=== PATIENT | female | born 1950 | race Caucasian/White ===

== ENCOUNTER 2019-09-03 21:25 | Observation (INO) | payer BC ==
--- OUTSIDE RECORDS SUMMARY | 2019-09-03 21:28 | XMS REPORT ---
:1950 Author Organization eClinicalWorks Care Team Providers Name Role Phone Flex Wells Provider Role Unavailable Allergies, Adverse Reactions, Alerts Substance Reaction Event Type Clindamycin HCl Info Not Available Drug Allergy Problems Problem Type Condition Code Onset Dates Condition Statu s Assessment Essential (primary) hypertension I10 Active Assessment Type 2 diabetes mellitus without E11.9 Active complication, without long-term current use of insulin Assessment Oral ulceration K12.1 Active Assessment Depression with anxiety F41.8 Acti ve Assessment Hyperlipidemia, unspecified E78.5 Active hyperlipidemia type Problem Lumbago with sciatica, left side M54.42 Active Problem Depression with anxiety F41.8 Acti ve Problem Essential (primary) hypertension I10 Active Problem Hyperlipidemia, unspecified E78.5 Active hyperlipidemia type Problem Type 2 diabetes mellitus without E11.9 Active complication, without long-term current use of insulin Problem Other chronic pain G89.29 Active Problem Gastroesophageal reflux disease K21.9 Active without esophagitis Medications Medication Code Code Instructions Start End Date Status Dosage System Date Metformin HCl [facility] 60777292947 1000 Active TAKE 1 TABLET BY MOUTH TWICE A DAY Pravastatin [facility] 26418328121 10 MG Active 1 EACH O NCE Sodium A DAY (AT BEDTIME) Cymbalta [facility] 21345104068 20 MG Active 1 CAPSULE ORALLY ONCE DAILY Amlodipine [facility] 67463437036 5 Active TAKE 1 Besylate TABLET BY MOUTH ONCE DAILY. Farxiga [facility] [id number] 5 Active 1 TAB(S) ORALLY ONCE A DAY FOR 30 DAYS Results No Known Results Summary Purpose eClinicalWorks Submission
[2019-09-03] MEDS ORDERED: INSULIN -REGULAR HUMAN 50 UNIT/0.5 ML ML ONE (22:54)
[2019-09-03] MEDS ORDERED: HYDRALAZINE HCL 20 MG/ML VIAL ONE (22:55)
[2019-09-03 22:58] LABS: Basophils % 0.8 % (0-1.3); Hematocrit 41.9 % (36.0-45.0); Lymphocytes % 18.2 % (15.3-44.8); MPV 8.6 fL (7.6-11.3); RBC Red Blood Cell Count 4.95 M/uL (3.86-4.86)
[2019-09-03 23:14] LABS: Potassium 3.6 mmol/L (3.5-5.1)
[2019-09-03 23:16] LABS: Protime INR 1.06
--- NOTE | 2019-09-03 23:41 | ER ---
Nurse's Notes [facility] Name: Shaila Washington Age: 68 yrs Sex: Female : 1950 Arrival Date: 09/03/2019 Time: 21:26 Bed 16 Private MD: Diagnosis: Weakness;CVA- Old;Hyperglycemia, unspecified Presentation: 09/02 21:36 Chief complaint: Patient states: Aphasia and right sided weakness has gotten worse ll1 today. States she has been having stroke like symptoms for past 2-3 weeks. Coronavirus screen: Proceed with normal triage. Patient denies a cough. Patient denies shortness of breath or difficulty breathing. Patient denies measured and/or subjective temperature greater than 100.4F prior to today's visit. Patient denies travel on a cruise ship or to a country the [facility] currently lists as an affected area. Patient denies contact with known and/or suspected case of COVID-19. Ebola Screen: Patient denies travel to an Ebola-affected area in the 21 days before illness onset. Initial Sepsis Screen: Does the patient meet any 2 criteria? HR > 90 bpm. Does the patient have a suspected source of infection? No. Patient's initial sepsis screen is negative. Risk Assessment: Do you want to hurt yourself or someone else? Patient reports no desire to harm self or others. Onset of symptoms was August 11, 2019. 21:36 Method Of Arrival: Wheelchair ll1 21:36 Acuity: BRIT 3 ll1 Triage Assessment: 21:45 General: Appears in no apparent distress. Behavior is calm, cooperative, appropriate vc for age. Pain: Denies pain. 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 Patient/guardian denies using alcohol, street drugs, tobacco products. Screenin:49 Abuse screen: Denies threats or abuse. Nutritional screening: No deficits noted. vc Tuberculosis screening: No symptoms or risk factors identified. Fall Risk None identified. Assessment: 22:00 General: Appears in no apparent distress. comfortable, Behavior is calm, cooperative, vc appropriate for age. Pain: Denies pain. 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 Cardiovascular: Capillary refill < 3 seconds Patient's skin is warm and dry. Respiratory: Airway is patent Respiratory effort is even, unlabored, Respiratory pattern is regular, symmetrical. GI: No signs and/or symptoms were reported involving the gastrointestinal system. : No signs and/or symptoms were reported regarding the genitourinary system. EENT: No deficits noted. Derm: Skin is intact, is healthy with good turgor. Musculoskeletal: Circulation, motion, and sensation intact. Range of motion: intact in all extremities. 23:00 Reassessment: Patient appears in no apparent distress at this time. Patient and/or vc family updated on plan of care and expected duration. Pain level reassessed. Patient is alert, oriented x 3, equal unlabored respirations, skin warm/dry/pink. Patient denies pain at this time. 09/03 00:00 Reassessment: Patient appears in no apparent distress at this time. Patient and/or vc family updated on plan of care and expected duration. Pain level reassessed. Patient is alert, oriented x 3, equal unlabored respirations, skin warm/dry/pink. Patient denies pain at this time. 01:00 Reassessment: Patient appears in no apparent distress at this time. Patient and/or vc family updated on plan of care and expected duration. Pain level reassessed. Patient is alert, oriented x 3, equal unlabored respirations, skin warm/dry/pink. Patient resting with eyes closed, no wants or needs at this time. Patient denies pain at this time. 01:22 Reassessment: Oracio Washington () [phone]. ea 01:49 Reassessment: Patient appears in no apparent distress at this time. Reassessment: vc Patient laying with eyes closed, chest rising and falling evenly. [facility]. Vital Signs: 09/02 21:36 BP 182 / 87; Pulse 109; Resp 18; Temp 98.6; Pulse Ox 96% ; Pain 0/10; ll1 23:30 BP 147 / 75; Pulse 89; Resp 20; Pulse Ox 95% on R/A; vc ED Course: 21:26 Patient arrived in ED. cl3 21:39 Triage completed. ll1 21:41 Arm band placed on Patient placed in an exam room, on a stretcher. ll1 21:51 Fredis Maxwell MD is Attending Physician. kdr 22:19 Stroke CXR 1 View In Process Unspecified. EDMS 22:19 Yessenia Sullivan, RN is Primary Nurse. vc 22:36 CT Stroke Brain w/o Contrast In Process Unspecified. EDMS 23:09 Bed in low position. Call light in reach. Side rails up X 1. Side rails up X2. Verbal jp3 reassurance given. csr on. Pulse ox on. NIBP on. 23:09 EKG done, by ED staff, reviewed by Fredis Maxwell MD. jp3 23:40 Guanako Thayer is Hospitalizing Provider. kdr 09/03 01:50 No provider procedures requiring assistance completed. Patient admitted, IV remains in vc place. 06:35 Primary Nurse role handed off by Yessenia Sullivan RN 07:20 Lupillo Beauchamp, RN is Primary Nurse. em Administered Medications: 09/02 22:30 Drug: Insulin Regular Human 8 units {Co-Signature: vc (Yessenia Sullivan RN).} Route: ll1 IVP; Site: right forearm; 09/03 01:42 Follow up: Response: No adverse reaction vc 01:43 Not Given (Hemodynamic Parameters): Lopressor 5 mg IVP once; Hold for SBP <100 or HR vc <60. Outcome: 09/02 23:41 Decision to Hospitalize by Provider. kdr 09/03 01:50 Admitted to ER Hold. [facility] for further documentation. vc Condition: good Instructed on the need for admit. 09:23 Patient left the ED. eb Signatures: Dispatcher [employer] EDMN Fredis Maxwell MD MD kdr Lupillo Beauchamp, BABAK RN em Eliana Frank, Lyndsay Wyatt RN, ea, Jacob jp3 Margaret Pina cl3 Yessenia Sullivan RN RN vc Rhonda Pina RN RN ll1 Yessenia Sullivan RN, vc
--- NOTE | 2019-09-03 23:41 | EDPHYS ---
Physician Documentation [facility] Name: Shaila Washington Age: 68 yrs Sex: Female : 1950 Arrival Date: 09/03/2019 Time: 21:26 Bed 16 Private MD: ED Physician Fredis Maxwell HPI: 09/02 23:41 This 68 yrs old Female presents to ER via Wheelchair with complaints of Arm kdr Numbness/weakness. 23:41 The patient states that on 08/16, she developed right sided weakness, upper and lower. kdr She was too concerned about COVID so she did not come to the ED. Today when her came home at 7:00 PM he noted that she was globally weak and unable to care for herself or feed herself. She is not able to give a definitive time when she developed these symptoms. She has no focal c/o at this time. Onset: The symptoms/episode began/occurred at an unknown time. Severity of symptoms: At their worst the symptoms were mild in the emergency department the symptoms are unchanged. This has been ongoing since August 16. The patient has not recently seen a physician. 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 Patient/guardian denies using alcohol, street drugs, tobacco products. ROS: 23:41 Constitutional: Negative for fever, chills, and weight loss, Eyes: Negative for injury, kdr pain, redness, and discharge, ENT: Negative for injury, pain, and discharge, Neck: Negative for injury, pain, and swelling, Cardiovascular: Negative for chest pain, palpitations, and edema, Respiratory: Negative for shortness of breath, cough, wheezing, and pleuritic chest pain, Abdomen/GI: Negative for abdominal pain, nausea, vomiting, diarrhea, and constipation, Back: Negative for injury and pain, : Negative for injury, bleeding, discharge, and swelling, MS/Extremity: Negative for injury and deformity, Skin: Negative for injury, rash, and discoloration, Psych: Negative for depression, anxiety, suicide ideation, homicidal ideation, and hallucinations, Allergy/Immunology: Negative for hives, rash, and allergies, Endocrine: Negative for neck swelling, polydipsia, polyuria, polyphagia, and marked weight changes, Hematologic/Lymphatic: Negative for swollen nodes, abnormal bleeding, and unusual bruising. 23:41 Neuro: Positive for weakness, of the right arm and right leg. Exam: 23:41 Constitutional: This is a well developed, well nourished patient who is awake, alert, kdr and in no acute distress. Head/Face: Normocephalic, atraumatic. Eyes: Pupils equal round and reactive to light, extra-ocular motions intact. Lids and lashes normal. Conjunctiva and sclera are non-icteric and not injected. Cornea within normal limits. Periorbital areas with no swelling, redness, or edema. Neck: Trachea midline, no thyromegaly or masses palpated, and no cervical lymphadenopathy. Supple, full range of motion without nuchal rigidity, or vertebral point tenderness. No Meningismus. Chest/axilla: Normal chest wall appearance and motion. Nontender with no deformity. No lesions are appreciated. Cardiovascular: Regular rate and rhythm with a normal S1 and S2. No gallops, murmurs, or rubs. Normal PMI, no JVD. No pulse deficits. Respiratory: Lungs have equal breath sounds bilaterally, clear to auscultation and percussion. No rales, rhonchi or wheezes noted. No increased work of breathing, no retractions or nasal flaring. Abdomen/GI: Soft, non-tender, with normal bowel sounds. No distension or tympany. No guarding or rebound. No evidence of tenderness throughout. Back: No spinal tenderness. No costovertebral tenderness. Full range of motion. Skin: Warm, dry with normal turgor. Normal color with no rashes, no lesions, and no evidence of cellulitis. MS/ Extremity: Pulses equal, no cyanosis. Neurovascular intact. Full, normal range of motion. Psych: Awake, alert, with orientation to person, place and time. Behavior, mood, and affect are within normal limits. 23:41 Neuro: Motor: moves all fours, strength is 5/5 in the left arm and left leg, strength is 4/5 in the right arm and right leg. Vital Signs: 21:36 BP 182 / 87; Pulse 109; Resp 18; Temp 98.6; Pulse Ox 96% ; Pain 0/10; ll1 23:30 BP 147 / 75; Pulse 89; Resp 20; Pulse Ox 95% on R/A; vc MDM: 23:41 Patient medically screened. kdr 23:41 Data reviewed: vital signs, nurses notes, lab test result(s), EKG, radiologic studies. kdr Counseling: I had a detailed discussion with the patient and/or guardian regarding: the historical points, exam findings, and any diagnostic results supporting the discharge/admit diagnosis, lab results, radiology results, the need for further work-up and treatment in the hospital. 09/02 22:07 Order name: Basic Metabolic Panel; Complete Time: 23:35 [facility] 09/02 22:07 Order name: CBC with Diff; Complete Time: 23:35 [facility] 09/02 22:07 Order name: Protime (+inr); Complete Time: 23:35 [facility] 09/02 22:07 Order name: CT Stroke Brain w/o Contrast [facility] 09/02 22:55 Order name: Glucose, Ancillary Testing; Complete Time: 23:35 [facility] 09/03 08:32 Order name: Glucose, Ancillary Testing [facility] 09/02 22:07 Order name: Stroke CXR 1 View [facility] 09/02 22:07 Order name: EKG; Complete Time: 22:08 [facility] 09/02 22:07 Order name: Accucheck; Complete Time: 22:50 [facility] 09/03 08:44 Order name: MRI [facility] 09/03 08:51 Order name: MRI [facility] 09/03 08:57 Order name: MRI [facility] 09/02 22:07 Order name: Cardiac monitoring; Complete Time: 23:10 [facility] 09/02 22:07 Order name: EKG - Nurse/Tech; Complete Time: 23:10 [facility] 09/02 22:07 Order name: IV Saline Lock; Complete Time: 22:50 [facility] 09/02 22:07 Order name: Labs collected and sent; Complete Time: 22:50 [facility] 09/02 22:07 Order name: NPO; Complete Time: 23:10 [facility] 09/02 22:07 Order name: O2 Per Protocol; Complete Time: 23:10 [facility] 09/02 22:07 Order name: O2 Sat Monitoring; Complete Time: 23:10 [facility] 09/02 22:07 Order name: Stroke Swallow Screen; Complete Time: 01:42 kdr Administered Medications: 22:30 Drug: Insulin Regular Human 8 units {Co-Signature: vc (Yessenia Sullivan RN).} Route: ll1 IVP; Site: right forearm; 09/03 01:42 Follow up: Response: No adverse reaction vc 01:43 Not Given (Hemodynamic Parameters): Lopressor 5 mg IVP once; Hold for SBP <100 or HR vc <60. Disposition: 09/03/19 23:41 Hospitalization ordered by Guanako Thayer for Inpatient Admission. Preliminary diagnosis are Weakness, CVA- Old, Hyperglycemia, unspecified. - Bed requested for Telemetry/MedSurg (Inpatient). - Status is Inpatient Admission. eb - Condition is Fair. - Problem is an ongoing problem. - Symptoms are unchanged. Signatures: Dispatcher [employer] EDMS Fredis Maxwell MD MD kdr Garcia, Cindy, RN RN cg Botello, Elizabeth eb Calcote, Vanessa, RN RN vc Lewis, Lynsay, RN RN [facility] Yessenia Sullivan RN, vc Corrections: (The following items were deleted from the chart) 01:09/02 23:41 Hospitalization Ordered by Guanako Thayer for Inpatient Admission. cg Preliminary diagnosis is Weakness; CVA- Old; Hyperglycemia, unspecified. Bed requested for Telemetry/MedSurg (Inpatient). Status is Inpatient Admission. Condition is Fair. Problem is an ongoing problem. Symptoms are unchanged. kdr 09/03 01:22 01:22 09/03/2019 23:41 Hospitalization Ordered by Guanako Thayer for Inpatient cg Admission. Preliminary diagnosis is Weakness; CVA- Old; Hyperglycemia, unspecified. Bed requested for [facility] ER HOLD. Status is Inpatient Admission. Condition is Fair. Problem is an ongoing problem. Symptoms are unchanged. cg 08:03 01:22 09/03/2019 23:41 Hospitalization Ordered by Guanako Thayer for Inpatient eb Admission. Preliminary diagnosis is Weakness; CVA- Old; Hyperglycemia, unspecified. Bed requested for [facility] ER HOLD. Status is Inpatient Admission. Condition is Fair. Problem is an ongoing problem. Symptoms are unchanged. cg 09:23 08:03 09/03/2019 23:41 Hospitalization Ordered by Guanako Thayer for Inpatient eb Admission. Preliminary diagnosis is Weakness; CVA- Old; Hyperglycemia, unspecified. Bed requested for Telemetry/MedSurg (Inpatient). Status is Inpatient Admission. Condition is Fair. Problem is an ongoing problem. Symptoms are unchanged. eb
--- NOTE | 2019-09-04 00:36 | P.HP ---
Certification for Inpatient Patient admitted to: Observation With expected LOS: <2 Midnights Practitioner: I am a practitioner with admitting privileges, knowledge of patient current condition, hospital course, and medical plan of care. Services: Services provided to patient in accordance with Admission requirements found in Title 42 Section 412.3 of the Code of Federal Regulations Patient History Date of Service: 09/04/19 Reason for admission: Right-sided weakness History of Present Illness: 68-year-old woman with a history diabetes mellitus presented emergency department with a complaint of right-sided weakness of onset about 2 weeks ago. Patient stated she did not come to the ED for evaluation because of the Covid pandemic. She stated her weakness got better but today her son found her lethargic and therefore brought her to the ED for evaluation. She still has significant weakness in her right arm and leg. CT head shows old CVA, no acute changes. EKG read sinus rhythm. Noted her blood sugar was elevated to the 400s. She has not followed with a physician for over a year and has been noncompliant with her medications. Patient is admitted for further stroke workup. Allergies No Known Allergies Allergy (Verified 03/13/12 22:09) Home Medications: Alprazolam [Xanax] 1 mg PO TID PRN 03/13/12 Gabapentin [Neurontin] 600 mg PO TID 03/13/12 Hydrocodone Bit/Acetaminophen [Smithers 10-325 Tablet] 1 each PO Q6HR 03/13/12 Lansoprazole [Prevacid] 30 mg PO BID 03/13/12 Lisinopril 40 mg PO DAILY 03/13/12 Metformin HCl [Glucophage*] 1,000 mg PO BID 03/13/12 Zolpidem Tartrate [Ambien] 10 mg PO BEDTIME PRN 03/13/12 Hcod/Chlorphen [Tussionex] 1 tsp PO Q8H PRN #6 oz 03/14/12 Levofloxacin [Levaquin] 500 mg PO DAILY #7 tablet 03/14/12 Prednisone 20 mg PO UD #15 tablet 03/14/12 - Past Medical/Surgical History Diabetic: Yes - Family History Father -: Heart disease Mother -: Diabetes - Social History Smoking Status: Never smoker Alcohol use: No CD- Drugs: No Caffeine use: Yes Review of Systems Other: Patient denied any trouble swallowing or visual disturbance or headache. Except as documented, all other systems reviewed and negative. Physical Examination - Physical Exam General: Alert, In no apparent distress, Oriented x3 HEENT: PERRLA, Mucous membr. moist/pink, EOMI Neck: Supple, JVD not distended Respiratory: Clear to auscultation bilaterally, Normal air movement Cardiovascular: No edema, Regular rate/rhythm, Normal S1 S2, No murmurs Capillary refill: <2 Seconds Gastrointestinal: Normal bowel sounds, Soft and benign, Non-distended, No tenderness Musculoskeletal: No swelling, No erythema Integumentary: No rashes Neurological: Normal speech, Sensation intact, Cranial nerves 3-12 intact, Other (Right-sided weakness. Motor 4/5 in right upper extremity and right lower extremity) - Studies Laboratory Data (last 24 hrs) 09/03/19 22:41: PT 12.5, INR 1.06 09/03/19 22:41: WBC 16.7 H, Hgb 13.9, Hct 41.9, Plt Count 402 09/03/19 22:41: Sodium 134 L, Potassium 3.6, BUN 13, Creatinine 1.26, Glucose 464 H* Assessment and Plan - Problems (Diagnosis) (1) Acute CVA (cerebrovascular accident) Current Visit: Yes Status: Acute (2) Diabetes mellitus type 2 in nonobese Current Visit: Yes Status: Acute (3) Hyperlipidemia Current Visit: Yes Status: Acute (4) Hepatitis C infection Current Visit: Yes Status: Acute - Plan Place patient under observation. Stroke workup with echocardiogram, MRI of the brain, carotid Doppler. Start full-dose aspirin and lipitor Check lipid profile. PT and OT evaluations Neurology consult Blood sugar control with insulin sliding scale. Hold metformin for now. - Advance Directives Does patient have a Living Will: No Does patient have a Durable POA for Healthcare: No
[2019-09-04] MEDS ORDERED: ONDANSETRON 4 MG/2 ML VIAL IV PRN (01:55)
[2019-09-04] MEDS ORDERED: ACETAMINOPHEN 500 MG TAB PO PRN (01:55)
--- NOTE | 2019-09-04 07:21 | RAD REPORT ---
EXAM DESCRIPTION: RAD - Chest Single View - 09/03/2019 10:18 pm CLINICAL HISTORY: weakness COMPARISON: March 2012 TECHNIQUE: AP portable chest image was obtained 09/03/2019 10:18 pm . FINDINGS: Lung volumes are low. No peripheral mass or consolidation. Failure and volume overload are not suspected. Interstitial pattern is accentuated by shallow inspiration, not clearly different from comparison. Sm all granuloma in the lower left lung field. Heart and vasculature are normal. No measurable pleural e ffusion and no pneumothorax. No acute bony abnormality seen. No acute aortic findings suspected. IMPRESSION: Shallow inspiration exam without acute cardiopulmonary finding. Very minimal interstitial edema or infiltrate could be masked. Follow-up can be obtained if the patie nt remains symptomatic.
[2019-09-04] MEDS: INSULIN -REGULAR HUMAN 50 UNIT/0.5 ML ML SQ SCH ×5 (07:30→21:17)
--- NOTE | 2019-09-04 08:43 | RAD REPORT ---
EXAM DESCRIPTION: MRI - MRA Head Wo Cont - 09/04/2019 8:07 am CLINICAL HISTORY: CVA, right-sided weakness COMPARISON: None. TECHNIQUE: Axial and coronal 3D [id number] image acquisition was performed. 3D rotational images were generated with source and reconstruction images reviewed. Horizontal and vertical axis rotation al views generated using MIP protocol. FINDINGS: No basilar artery stenosis. Bilateral posterior communicating arteries are present. There is significant focal stenosis in the left posterior communicating artery. Short-segment significant s tenosis present in the P2 segment of the right posterior cerebral artery. There is truncation of the distal left posterior cerebral artery P2 segment and the subsequent P3 segments. Distal internal carotid arteries show atherosclerotic change with stenoses of less than 50%. CT imagi ng showed significant internal carotid artery atherosclerotic calcifications. The right anterior cerebral and middle cerebral arteries show mild atherosclerotic changes with no si gnificant luminal narrowing. Mild atherosclerotic narrowing of the right anterior cerebral artery A1 segment. Significant high-gra de stenoses present involving the M1-M2 junction of the left middle cerebral artery. Significant high -grade stenoses extend into the origin of the M2 branches. Overall diminished vascularity in the left middle cerebral artery branches relative to the right with truncated branches. IMPRESSION: Bilateral internal carotid artery atherosclerotic changes are present with luminal narro wing. This does not appear to exceed the 50% threshold. No basilar artery stenoses. Significant atherosclerotic change with high-grade stenosis and branch occlusion involving the left m iddle cerebral artery and left posterior cerebral artery distributions.
--- NOTE | 2019-09-04 08:49 | RAD REPORT ---
EXAM DESCRIPTION: MRI - MRA Neck W/Wo Cont - 09/04/2019 8:07 am CLINICAL HISTORY: Right-sided CVA COMPARISON: CT head same date, MRI same date, MRA head same date TECHNIQUE: MR angiography of the cervical vasculature performed. Coronal imaging plane acquisition u tilized. A 13 MultiHance contrast volume was utilized. Coronal reformatted images were generated and reviewed. Vertical axis 3D rotational projections obtained using maximum intensity projection protoco l. FINDINGS: Aortic arch is bovine configuration. No great vessel origin stenosis. Stenosis at the origin of the left vertebral artery is identified estimated at 60- 70%. This can be c orrelated with velocity values at sonography. Left vertebral artery is dominant. The nondominant righ t vertebral artery shows no origin stenosis. Approximately 50% luminal narrowing is seen in the dista l left vertebral artery between the posterior inferior cerebellar artery and the base of the basilar artery. Narrowing is less significant in the distal right vertebral artery through this same distal p ortion. Bilateral common carotid artery age show no significant disease. The right bulb ICA junction shows pr oximally 70% stenosis over a 1 centimeter segment. More distally the right internal carotid artery sh ows no additional stenosis or dissection. No left internal carotid artery stenosis or dissection seen. Origin of the left external carotid mona ry is not seen. IMPRESSION: Estimated 70% stenosis of the proximal portion right internal carotid artery. Estimated 60- 70% stenosis of the origin of the left vertebral artery. Approximately 50% stenosis of each vertebral artery between the posterior inferior cerebellar artery origin and the base of the basilar artery. Given the symmetry, this may be normal anatomic variation.
--- NOTE | 2019-09-04 08:55 | RAD REPORT ---
EXAM DESCRIPTION: MRI - Brain W/Wo Cont - 09/04/2019 8:07 am CLINICAL HISTORY: RT SIDED WEAKNESS, right-sided CVA COMPARISON: MRA Head Wo Cont dated 09/04/2019 TECHNIQUE: Sagittal and axial T1-weighted images were obtained. Axial PD/heavily T2-weighted and T2- FLAIR images were obtained along with axial DWI/ADC mapping sequences. Coronal heavily T2 weighted s equence obtained. Axial and coronal post-contrast T1-weighted images were also obtained. A 13 ml Mul tihance contrast following utilized. FINDINGS: No intracranial hemorrhage is present. No mass, edema or shift of midline structures. Diff usion-weighted imaging shows abnormal signal throughout much of the left frontal lobe white matter. S ignal extends from the subcortical white matter of the lateral left frontal lobe to the periventricul ar white matter. Signal extends posteriorly to the central and precentral sulci. Minimal abnormal dif fusion signal is present near the left parietooccipital junction. Corresponding diminished signal pre sent on ADC mapping. No cortical infarction changes confirmed. No other area of acute infarction. Patient has moderate underlying atrophy and chronic ischemic gould e. There is no edema or shift of midline structures. No extra-axial fluid collections. Peres-matter/wh ite matter junction is preserved. Minimal amounts of enhancement are seen in the region of acute infarction. No other area of abnormal enhancement. No dural thickening, dural enhancement or dural signal abnormality. Mastoid air cells and paranasal sinuses are clear. No globe or orbital content abnormality. IMPRESSION: Acute nonhemorrhagic white matter infarction changes are present involving much of the l eft frontal lobe including the central an precentral sulci. Minimal acute nonhemorrhagic infarction changes are present in the white matter of the left parietooc cipital junction. No intracranial hemorrhage. No mass effect or edema. The white matter pattern would support a watershed type infarction involving multiple compromised ves sels as detailed on the MRA head examination.
--- NOTE | 2019-09-04 09:44 | EKG ---
Test Date: 2019-09-03 Test Time: 23:07:17 Net Lead Developer: [place] MEASUREMENT RESULTS: Intervals: Rate: 82 AK: 168 QRSD: 82 QT: 386 QTc: 450 Lebo: P: 64 AK: 168 QRS: 58 T: 28 INTERPRETIVE STATEMENTS: Sinus rhythm with premature atrial complexes Nonspecific T wave abnormality Abnormal ECG Electronically Signed On 09-04-19 09:43:51 CDT by Neri Payan
[2019-09-04] MEDS: NA CHLORIDE 0.9% 1,000 ML IV SCH ×2 (10:12→15:15)
[2019-09-04] MEDS: ENOXAPARIN 40 MG/0.4 ML SQ SCH (10:12)
[2019-09-04] MEDS: ASPIRIN EC 81 MG TAB PO SCH (10:12)
--- NOTE | 2019-09-04 10:17 | RAD REPORT ---
EXAM DESCRIPTION: CT - Ct Stroke Brain Wo Cont - 09/04/2019 5:44 am CLINICAL HISTORY: 68 years Female right sided weakness for three weeks COMPARISON: None. TECHNIQUE: Contiguous axial CT images obtained through the brain without IV contrast. This exam was performed according to our department optimization program which includes automated exp osure control, adjustment of the mA and/or kv according to patient size and/or use of iterative recon struction technique. FINDINGS: The ventricles and sulci are prominent consistent with atrophic changes. Microvascular ischemic changes. There is some decreased density in the left lai radiata likely from old ischemic change as there i s mild enlargement of the adjacent lateral ventricle. Old lacunar infarcts in the left external capsule. No mass lesions. No acute hemorrhage. Atherosclerotic calcifications. No fluid or significant mucosal thickening in the visualized paranasal sinuses. No depressed calvarial fractures. IMPRESSION: Atrophy and microvascular ischemic changes. Old appearing ischemic changes in the left lai radia ta. No definite acute abnormality. If there is clinical concern for the possibility of acute ischemic change, MRI could be obtained to better evaluate. The findings were called to Dr. Maxwell at 10:47 PM. Electronically signed by: Alonso Azar MD 09/03/2019 10:48 PM CDT Due to temporary technical issues with the PACS/Fluency reporting system, reports are being signed by the in house radiologist as a courtesy to ensure prompt reporting. The interpreting radiologist is f ully responsible for the content of the report.
--- NOTE | 2019-09-04 11:22 | P.PN ---
Subjective Date of Service: 09/04/19 (Hospitalist) Chief Complaint: Right-sided weakness Patient's condition is stable she apparently experienced a stroke-like symptoms with right-sided hemiparesis 3 weeks ago got worse yesterday has some expressive dysphasia Review of Systems Unremarkable Physical Examination - Vital Signs Temperature: 98.7 F Blood Pressure: 165/77 Pulse: 88 Respirations: 16 Pulse Ox (%): 96 - Physical Exam General: Alert, Oriented x3 HEENT: Atraumatic Neck: Supple Respiratory: Clear to auscultation bilaterally Cardiovascular: No edema Gastrointestinal: Normal bowel sounds, Soft and benign Musculoskeletal: No clubbing Integumentary: No rashes Neurological: Other (Patient has weakness on the right side right leg worse than the right arm with expressive dysphagia no other cranial nerve dysfunction noted) - Studies Laboratory Data (last 24 hrs) 09/03/19 22:41: PT 12.5, INR 1.06 09/03/19 22:41: WBC 16.7 H, Hgb 13.9, Hct 41.9, Plt Count 402 09/03/19 22:41: Sodium 134 L, Potassium 3.6, BUN 13, Creatinine 1.26, Glucose 464 H* Assessment & Plan - Problems (Diagnosis) (1) Acute CVA (cerebrovascular accident) Current Visit: Yes Status: Acute Plan: Patient is 89 years of age admitted with a stroke happen 3 weeks ago slightly worse apparently since yesterday : Acute nonhemorrhagic white matter infarction changes are present involving much of the left frontal lobe including the central an precentral sulci. Minimal acute nonhemorrhagic infarction changes are present in the white matter of the left parietooccipital junction. No intracranial hemorrhage. No mass effect or edema. Bilateral carotid artery stenosis was less than 50% patient's white count is mildly elevated family she has not been out of the house for the past year as not take any medications at home history of hypertension urology has been consulted plan to ambulate speech therapy Consul
--- NOTE | 2019-09-04 12:33 | ECHO ---
HEIGHT: 5 ft 5 in WEIGHT: 120 lb 0 oz DATE OF STUDY: 09/04/[address]: stanislaw dumont 2-DIMENSIONAL: YES M.MODE: YES DOPPLER: YES COLOR FLOW: YES TDS: NO PORTABLE: NO DEFINITY: NO BUBBLE STUDY: NO DIAGNOSIS: STROKE CARDIAC HISTORY: CATHERIZATION: NO SURGERY: NO PROSTHETIC VALVE: NO PACEMAKER: NO MEASUREMENTS (cm) DIASTOLIC (NORMALS) SYSTOLIC (NORMALS) IVSd 1.2 (0.6-1.2) LA Diam (1.9-4.0) LVEF 68% LVIDd 3.5 (3.5-5.7) LVIDs 2.2 (2.0-3.5) %FS 37% LVPWd 1.2 (0.6-1.2) Ao Diam 2.7 (2.0-3.7) 2 DIMENSIONAL ASSESSMENT: RIGHT ATRIUM: NORMAL LEFT ATRIUM: NORMAL RIGHT VENTRICLE: NORMAL LEFT VENTRICLE: NORMAL TRICUSPID VALVE: NORMAL MITRAL VALVE: NORMAL PULMONIC VALVE: NOT WELL SEEN AORTIC VALVE: NORMAL PERICARDIAL EFFUSION: TRACE AORTIC ROOT: NORMAL LEFT VENTRICULAR WALL MOTION: NORMAL LEFT VENTRICULAR EJECTION FRACTION 55-60%. IMPAIRED RELAXATION. DOPPLER/COLOR FLOW: NORMAL. COMMENTS: NORMAL LEFT VENTRICULAR EJECTION FRACTION 55-60%. NORMAL WALL MOTION. IMPAIRED RELAXATION. TRACE OF PERICARDIAL EFFUSION. TECHNOLOGIST: BRIGID TRISTAN
[2019-09-04] MEDS ORDERED: ATORVASTATIN 20 MG TAB PO SCH (21:00)
--- NOTE | 2019-09-04 21:30 | CON ---
Reason For Consultation: Consultation called because of stroke. History Of Present Illness: Ms. Washington is a 68-year-old, right-handed patient with diabete s mellitus, hypertension, who noted right-sided weakness about 2-3 weeks ago, but because of the risk of soo COVID-19, she did not come to the hospital. She said she did her own therapy with th e help of her son and started to improve her strength; however, because of persistent and recurrent w eakness of the right arm and leg, she eventually came to [facility] today. 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 However, the MRI of the brain suggested angélica t the stroke was more acute. Despite the apparent larger of the stroke, the patient actually recover ed functioning to almost no deficits in the right face, arm, or leg in terms of sensation, strength, coordination, or even her balance and gait. Her speech, content, and articulation were essentially n ormal. She said she took 1 aspirin at the onset of the symptoms, but then did not repeat the aspirin . Since hospitalization, she is now taking an aspirin daily and she received IV fluids along with co ntinuing her medications for diabetes mellitus and hypertension. Past Medical History: As indicated. Allergies: NO KNOWN DRUG ALLERGIES. Medications: At home, Xanax 1 mg 3 times daily, gabapentin 600 mg 3 times daily, [place] 10/325 every 6 hours as needed, Prevacid 30 mg twice daily, lisinopril 40 mg daily, metformin 1000 mg twice daily, Ambien 10 mg at bedtime, Tussionex 1 teaspoon every 8 hours as needed, Levaquin mg daily, prednisone 20 mg every other day. Family History: Positive for heart disease in father and diabetes in mother. Social History: Patient denies alcohol, tobacco, or IV drug use. Review of Systems: Aside from mentioned, she denies any recent fevers, chills, nausea, vomiting, myalgias, arthralgias, headaches, weight change, psychiatric complaints, or gastrointestinal or genitourinary complaints. Physical Examination: Vital Signs: Blood pressure 171/66, pulse 73, respiratory rate 16, temperature 98.9, oxygen saturati on 95%. Weight 120 pounds, height 5 feet 5 inches, BMI 20. Ms. Washington is resting comfortably in bed . She is in no acute distress. She has very poor dentition, actually just 2 teeth in her mouth, upp er and lower jaw. She is normocephalic and atraumatic. Sclerae anicteric. Oropharynx is moist and pink. Neck: Supple. Chest: Clear. Heart: Regular. Extremities: Show no edema, cyanosis, or clubbing. Neurologic: She is alert and oriented to situation, place, and person. Follows commands appropriate ly. Cranial nerves 2 through 12 are intact by examination. 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 Lower extremity; she has full strength, right versus left. Sensory examination: She reports intact to light touch, temperature in the righ t and left upper and lower extremities. Coordination intact in upper and lower extremities. She did ambulate with physical therapy. Complete 250 feet without any difficulty. Laboratory Studies: Complete blood count with differential shows an elevated white blood cell count of 16.7 with neutrophils of 75.1, hemoglobin and hematocrit were normal. Coagulation panel is normal . Chemistries showed a glucose at hospitalization elevated at 464, currently 260. Sodium 134, potas sium 3.6, chloride 100, carbon dioxide 20, BUN 13, creatinine 1.12, calcium 9.2. Neck MRA shows 70% stenosis of proximal right internal carotid artery and 60% to 70% stenosis of the left vertebral artery with 50% stenosis in each vertebral artery between posterior inferior cerebella r artery origin and the base of the basilar arteries. Radiologist feels it may be an anatomical vari ant. Brain MRI does show acute nonhemorrhagic stroke involving much of the frontal lobe including th e central and precentral sulci. There are minimal acute nonhemorrhagic changes present in the white matter of the left parieto-occipital junction. The report suggests that the pattern supports a water shed type infarction involving multiple compromised vessels. Electrocardiogram; sinus rhythm with so me premature atrial complexes, nonspecific ST changes. Echocardiogram; ejection fraction 68%, normal study except for impaired relaxation of the left ventricle Assessment: Ms. Washington is a 68-year-old patient with multiple stroke risk factors including hyperten thom, diabetes mellitus, and dyslipidemia, who was not regularly taking aspirin, had a stroke about 3 weeks ago and it appears per the radiologist's report possibly related to watershed changes. She, anabell oliver, has recovered very, very well and there is discordancy between the stroke report and the yohannes ent's clinical examination. She is actually much better than it suggests on the scan. The stroke is not acute. Clinically, it is subacute, though the MRI does say acute. CT scan says it is more suba cute to chronic. Plan: Patient may continue with therapy perhaps outpatient of [facility] or home health. She is not a candidate for inpatient rehabilitation as she is doing very well in terms of mobility, transfers, a nd all activities that require to take care of herself in the day or night. Discharge home. Continu e aspirin 81 mg daily, Lipitor 40 mg at bedtime, aggressive management of hypertension and diabetes gian mccain, brisk daily exercise at least 30 minutes and drink 8 glasses of water daily. She may be dis charged home and follow up in Dr. Agrawal's clinic the first time via telemedicine followup in Sat. TAL Voice ID: [id number] Report ID: [id number]
[2019-09-05] MEDS: NA CHLORIDE 0.9% 1,000 ML IV SCH ×2 (01:13→04:35)
[2019-09-05 04:58] LABS: Absolute Lymphocytes (CBC) 4.7 K/uL (0.7-4.9); Basophils % 1.2 % (0-1.3); Hematocrit 37.6 % (36.0-45.0); Lymphocytes % 29.5 % (15.3-44.8); MPV 8.7 fL (7.6-11.3)
[2019-09-05 05:00] LABS: Protime INR 1.06
[2019-09-05 05:23] LABS: BUN Blood Urea Nitrogen 14 mg/dL (7-18); Bicarbonate 28 mmol/L (21-32); Glucose Level 144 mg/dL (74-106); HDL Cholesterol 47 mg/dL (40-60); LDL Cholesterol, Calculated 122 (<130); Magnesium 1.5 mg/dL (1.8-2.4); Phosphorus 3.2 mg/dL (2.5-4.9); Potassium 3.4 mmol/L (3.5-5.1); Sodium Level 140 mmol/L (136-145)
[2019-09-05] MEDS ORDERED: Magnesium Sulfate 2gm IVPB 2 G/50 ML BAG IV ONE (06:30)
[2019-09-05] MEDS ORDERED: POTASSIUM CL SA 10 MEQ TAB PO ONE (06:30)
[2019-09-05] MEDS: ENOXAPARIN 40 MG/0.4 ML SQ SCH (09:05)
[2019-09-05] MEDS: INSULIN -REGULAR HUMAN 50 UNIT/0.5 ML ML SQ SCH (09:05)
[2019-09-05] MEDS: ASPIRIN EC 81 MG TAB PO SCH (09:06)
[2019-09-05 09:14] VITALS: BP 165/77; TEMP 98.7
--- NOTE | 2019-09-05 09:14 | P.DS ---
Admission Date: 09/04/19 Discharge Date: 09/05/19 Disposition: ROUTINE DISCHARGE Discharge Condition: FAIR Reason for Admission: Right-sided weakness - Problems (1) Acute CVA (cerebrovascular accident) Current Visit: Yes Status: Acute Brief History of Present Illness: Patient is 68 years of age admitted with right-sided weakness since July 16 according to the Hospital Course: Patient admitted with stroke and found on the MRI scan discuss with the some does present since July 16 patient does not go out of the house not been taking her medication history of depression will be about the virus Seen by Dr. Agrawal Patient was admitted for observation she did well the time of discharge still has some expressive dysphagia right-sided weakness and could from home medications through the while the pharmacy will resume her diabetic meds. Patient was alert or oriented responsive cooperative with expressive dysphagia had some right-sided weakness no new changes discuss with the ready to be discharged white count was mildly elevated MRI showed a stroke in the parieto-occipital region minimal carotid artery disease white count was minimally elevated denied any unit tract symptoms no evidence of pneumonia or fever Vital Signs/Physical Exam: Temp Pulse Resp BP Pulse Ox 97.7 F 71 16 135/63 95 09/05/19 04:00 09/05/19 04:00 09/05/19 04:00 09/05/19 04:00 09/05/19 04:00 Laboratory Data at Discharge: WBC 16.1 K/uL (4.3-10.9) H 09/05/19 04:35 Hgb 12.3 g/dL (12.0-15.0) 09/05/19 04:35 Hct 37.6 % (36.0-45.0) 09/05/19 04:35 Plt Count 372 K/uL (152-406) 09/05/19 04:35 PT 12.5 SECONDS (9.5-12.5) 09/05/19 04:35 INR 1.06 09/05/19 04:35 Sodium 140 mmol/L (136-145) 09/05/19 04:35 Potassium 3.4 mmol/L (3.5-5.1) L 09/05/19 04:35 BUN 14 mg/dL (7-18) 09/05/19 04:35 Creatinine 0.62 mg/dL (0.55-1.3) 09/05/19 04:35 Glucose 144 mg/dL (74-106) H 09/05/19 04:35 Phosphorus 3.2 mg/dL (2.5-4.9) 09/05/19 04:35 Magnesium 1.5 mg/dL (1.8-2.4) L 09/05/19 04:35 Triglycerides 220 mg/dL (<150) H 09/05/19 04:35 Cholesterol 213 mg/dL (<200) H 09/05/19 04:35 HDL Cholesterol 47 mg/dL (40-60) 09/05/19 04:35 Cholesterol/HDL Ratio 4.53 09/05/19 04:35 Home Medications: Ropinirole HCl [Requip] 2 mg PO BEDTIME 09/04/19 Aspirin [Adult Low Dose Aspirin EC] 81 mg PO DAILY #30 tablet. 09/05/19 Atorvastatin Calcium [Lipitor] 40 mg PO 30 MIN BEFORE HS #30 tablet 09/05/19 Metformin ER [Glucophage ER*] 500 mg PO BID 30 Days #60 tab.sa 09/05/19 New Medications: Aspirin [Adult Low Dose Aspirin EC] 81 mg PO DAILY #30 tablet. Metformin ER [Glucophage ER*] 500 mg PO BID 30 Days #60 tab.sa Atorvastatin Calcium [Lipitor] 40 mg PO 30 MIN BEFORE HS #30 tablet Patient Discharge Instructions: Patient to follow up with Dr. Agrawal in in a month and to follow up with either Dr. martinez, or Dr Dubois 1-2 wks Diet: Regular Activity: Ad lawson
[2019-09-05 13:23] VITALS: O2SAT 94
== END 2019-09-05 12:14 | disposition home or self-care (01) ==
LOC: ER 21:25 → ERHOLD 09-04 00:41 → 2ND 09-04 09:08
PROVIDERS: ADMIT Internal Medicine; ATTEND Internal Medicine Sleep Medicine
DX: I63.232 Cerebral infarction due to unspecified occlusion or stenosis of left carotid arteries (principal); G81.91 Hemiplegia, unspecified affecting right dominant side; R47.02 Dysphasia; R29.706 NIHSS score 6; E11.65 Type 2 diabetes mellitus with hyperglycemia; I10 Essential (primary) hypertension; E78.5 Hyperlipidemia, unspecified; B19.20 Unspecified viral hepatitis C without hepatic coma; F32.9 Major depressive disorder, single episode, unspecified; Z91.14 Patient's other noncompliance with medication regimen; Z82.49 Family history of ischemic heart disease and other diseases of the circulatory system; Z83.3 Family history of diabetes mellitus
CPT/HCPCS: 93005; 93306; 85025 ×2; 80048 ×2; 36415 ×2; 83735; 84100; 85610 ×2; 80061; 82947 ×8; 84443; 70450; 71045; 70553; 70544; 70549; 97112; 97116; 97161; 97530; 94760 ×2; 96374; 99285; A9577; J1650 ×2; J3475; J7030 ×2; G0378 ×3; J0360

== ENCOUNTER 2021-11-19 12:30 | Inpatient (IN) | payer BC ==
[2021-11-19] MEDS ORDERED: AZITHROMYCIN 250 MG TAB ONE (13:19)
[2021-11-19] MEDS ORDERED: FAMOTIDINE 20 MG TAB ONE (13:20)
[2021-11-19] MEDS ORDERED: NA CHLORIDE 0.9% 1,000 ML ONE (13:20)
[2021-11-19] MEDS ORDERED: FUROSEMIDE 40 MG/4 ML VIAL ONE (13:36)
--- NOTE | 2021-11-19 13:59 | RAD REPORT ---
EXAM DESCRIPTION: RAD - Chest Single View - 11/19/2021 1:22 pm CLINICAL HISTORY: Cough Chest pain. COMPARISON: Chest Single View dated 09/03/2019; CHEST PA AND LAT 2 VIEW dated 03/14/2012; CHEST PA AND LAT 2 VIEW dated 03/13/2012 FINDINGS: Portable technique limits examination quality. Moderate bilateral pulmonary opacities are present with a small right pleural effusion. Findings like ly indicate pulmonary edema or pneumonia. The heart is upper limit of normal in size.
[2021-11-19 14:21] LABS: ALT/SGPT 21 U/L (12-78); AST/SGOT 16 U/L (15-37); Albumin 2.7 g/dL (3.4-5.0); Alkaline Phosphatase 74 U/L (45-117); BUN Blood Urea Nitrogen 14 mg/dL (7-18); Bicarbonate 27 mmol/L (21-32); Bilirubin Total 0.2 mg/dL (0.2-1.0); Glomerular Filtration Rate 45 ml/min (=/>90); Glucose Level 141 mg/dL (74-106); NT PRO-BNP 10760 pg/mL (<125); Potassium 3.2 mmol/L (3.5-5.1); Protein, Total 7.2 g/dL (6.4-8.2); Sodium Level 137 mmol/L (136-145)
[2021-11-19 14:22] LABS: Bilirubin Direct < 0.1 mg/dL (0-0.2); Hematocrit 35.4 % (36.0-45.0); Lymphocytes % 35.5 % (15.3-44.8); MCV 85.2 fL (80-100); RBC Red Blood Cell Count 4.15 M/uL (3.86-4.86)
[2021-11-19 14:23] LABS: Troponin High Sensitivity 81.7 pg/mL (<58.9)
[2021-11-19 14:56] LABS: Protime INR 1.13
--- NOTE | 2021-11-19 15:08 | ER ---
Nurse's Notes [facility] Name: Shaila Washington Age: 71 yrs Sex: Female : 1950 Arrival Date: 11/19/2021 Time: 12:36 Bed 3 Private MD: Diagnosis: Cardiomegaly;Unspecified diastolic (congestive) heart failure;Unspecified systolic (congestive) heart failure;Essential (primary) hypertension;Type 1 diabetes mellitus with hyperglycemia;Hypokalemia;Abnormal levels of other serum enzymes-elevated tropnin 81.7 Presentation: 11/19 12:42 Chief complaint: SOB x 3 days. Denies cough/pain/fever. hb 12:42 Method Of Arrival: Ambulatory hb 12:42 Acuity: BRIT 3 hb 12:44 Coronavirus screen: Client presents with at least one sign or symptom that may indicate hb coronavirus-19. Standard/surgical mask placed on the client. Provider contacted for isolation considerations. Ebola Screen: No symptoms or risks identified at this time. Risk Assessment: Do you want to hurt yourself or someone else? Patient reports no desire to harm self or others. Onset of symptoms was November 17, 2021. 15:56 Initial Sepsis Screen: Does the patient meet any 2 criteria? No. Patient's initial ph sepsis screen is negative. Does the patient have a suspected source of infection? No. Patient's initial sepsis screen is negative. Triage Assessment: 17:02 Respiratory: the patient has moderate shortness of breath. ha1 Historical: - Allergies: 12:43 No Known Allergies; hb - PMHx: 12:43 Diabetes - IDDM; Hyperlipidemia; Hypertension; hb - Immunization history:: Adult Immunizations unknown. - Social history:: Smoking status: unknown. Screenin:56 Abuse screen: Denies threats or abuse. Denies injuries from another. Nutritional ph screening: No deficits noted. Tuberculosis screening: No symptoms or risk factors identified. Fall Risk None identified. Assessment: 12:45 General: Appears comfortable, Behavior is calm, cooperative, Reports fatigue for 0-12 ha1 hours, SOB. Pain: Denies pain. Neuro: Level of Consciousness is awake, alert, obeys commands, Oriented to person, place, time, situation. Cardiovascular: Heart tones S1 S2 present Capillary refill < 3 seconds Pulses are all present. Rhythm is regular. Respiratory: Reports shortness of breath on exertion Airway is patent Respiratory effort is even, Breath sounds with crackles bilaterally. Onset: The symptoms/episode began/occurred gradually. GI: No signs and/or symptoms were reported involving the gastrointestinal system. : No signs and/or symptoms were reported regarding the genitourinary system. EENT: No signs and/or symptoms were reported regarding the EENT system. Derm: Skin is intact, Skin is dry, Skin is pink, warm \T\ dry. Musculoskeletal: Capillary refill < 3 seconds. 13:20 Reassessment: Patient and/or family updated on plan of care and expected duration. Pain ha1 level reassessed. Patient is alert, oriented x 3, equal unlabored respirations, skin warm/dry/pink. Patient denies pain at this time. Patient states feeling better. after being on the nasal. on 2 liter oxygen.. 14:10 Reassessment: Patient is alert, oriented x 3, equal unlabored respirations, skin ha1 warm/dry/pink. 14:10 General: Appears comfortable, Behavior is calm, cooperative. Neuro: Level of ha1 Consciousness is Oriented to person, place, time, situation, Respiratory: Reports SOB has been relieved. need to get out of bed frequently due to frequent urination. After the administration of Lasix. Bed commode at bed side. call easley within reach. 15:30 Reassessment: Patient is alert, oriented x 3, equal unlabored respirations, skin ha1 warm/dry/pink. Patient denies pain at this time. Patient states feeling better. Patient states symptoms have improved. 17:35 Reassessment: Patient is alert, oriented x 3, equal unlabored respirations, skin ha1 warm/dry/pink. Patient denies pain at this time. Patient states symptoms have improved. reports feeling better. General: Appears comfortable. Pain: Denies pain. Neuro: Level of Consciousness is Oriented to person, place, time, situation, Gait is unsteady, need assistance with ambulation to bed commode. SOB worsen with ambulation. Vital Signs: 12:42 BP 172 / 98; Pulse 89; Resp 24; Temp 98.2(TE); Pulse Ox 96% on R/A; Weight 63.5 kg; hb Height 5 ft. 6 in. (167.64 cm); Pain 0/10; 12:45 BP 175 / 103 LA Sitting; Pulse 93; Resp 18; Pulse Ox 96% on R/A; ha1 15:30 BP 127 / 83 LA Supine; Pulse 80 LA; Resp 16 S; Pulse Ox 95% on 2 lpm NC; Pain 0/10; ha1 15:55 BP 127 / 83; Pulse 87; Resp 18; Pulse Ox 96% on R/A; ph 16:38 BP 156 / 86 LA Supine; Pulse 80; Resp 18 S; Pulse Ox 95% on 2 lpm NC; ha1 17:31 BP 170 / 83 LA Supine; Pulse 71; Resp 20 S; Pulse Ox 99% on 2 lpm NC; ha1 12:42 Body Mass Index 22.60 (63.50 kg, 167.64 cm) hb ED Course: 12:36 Patient arrived in ED. [id number] 12:43 Triage completed. hb 12:44 Arm band placed on. hb 12:56 Dimas Hilario MD is Attending Physician. orion 13:05 Alison Spencer, BABAK is Primary Nurse. ha1 13:23 XRAY Chest (1 view) In Process Unspecified. EDMS 13:44 Inserted saline lock: 20 gauge in right antecubital area, using aseptic technique. zm Blood collected. 13:44 Basic Metabolic Panel Sent. zm 13:44 CBC with Diff Sent. zm 13:44 D-Dimer Sent. zm 13:44 LFT's Sent. zm 13:44 Magnesium Sent. zm 13:44 NT PRO-BNP Sent. zm 13:44 PT-INR Sent. zm 13:44 Troponin HS Sent. zm 13:44 Blood Culture Adult (2) Sent. zm 15:06 Shreya Perez MD is Hospitalizing Provider. orion 15:27 US Extremity Venous W Compression Ej In Process Unspecified. EDMS 15:32 Darline Barrow, RN is Primary Nurse. ph 15:56 Patient has correct armband on for positive identification. Bed in low position. Call ph light in reach. Side rails up X 1. Client placed on continuous cardiac and pulse oximetry monitoring. NIBP monitoring applied. 17:03 No provider procedures requiring assistance completed. Patient admitted, IV remains in ha1 place. 17:04 Bed in low position. Call light in reach. Side rails up X2. Lights dimmed. Warm blanket ha1 given. Administered Medications: 13:19 Not Given (Duplicate Order): NS 0.9% 1000 ml IV at 125 ml/hr continuous orion 13:19 Not Given (Duplicate Order): NS 0.9% 500 ml IV at bolus once orion 13:19 Not Given (Duplicate Order): Zithromax (azithromycin) 500 mg PO once orion 13:19 Not Given (Duplicate Order): Pepcid (famotidine) 40 mg PO once orion 13:56 Drug: Lasix (furosemide) 40 mg Route: IVP; Site: right antecubital; ph 17:43 Follow up: Response: No adverse reaction; Blood pressure is lowered; Wheezing diminishedha1 17:46 Follow up: Response: No adverse reaction; Blood pressure is lowered; Wheezing diminishedha1 15:44 Not Given (Hemodynamic Parameters): NS 0.9% 1000 ml IV at 125 ml/hr continuous ph 15:48 Drug: Pepcid (famotidine) 20 mg Route: IVP; Site: right antecubital; ha1 17:43 Follow up: Response: No adverse reaction ha1 15:50 Drug: Lovenox (enoxaparin) 1 mg/kg Route: Sub-Q; Site: right lower abdomen; ha1 17:42 Follow up: Response: No adverse reaction ha1 15:50 Drug: Lopressor (metoprolol TARTRATE)) 25 mg Route: PO; ha1 17:40 Follow up: Response: No adverse reaction; Blood pressure is lowered ha1 16:32 Not Given (Other Intervention Used): Tylenol 650 mg PO once ph 17:25 Drug: Nitro-Bid (nitroglycerin) Ointment 2 % 1 inches Route: Transdermal; Site: [facility] anterior chest wall; 19:41 Follow up: Response: No adverse reaction ph 18:15 Drug: Potassium Effervescent Tablet 50 mEq Route: PO; ha1 19:41 Follow up: Response: No adverse reaction ph Medication: 17:03 VIS not applicable for this client. ha1 Intake: 15:00 PO: 80ml (Water); Total: 80ml. ha1 Output: 15:00 Urine: 650ml (Voided); Total: 650ml. ha1 Outcome: 15:07 Decision to Hospitalize by Provider. orion 19:01 Patient left the ED. ph 19:01 Admitted to Tele accompanied by sachi, via wheelchair, room 207, with chart, Report ph called to BABAK Concepcion 19:01 Condition: stable 19:01 Instructed on the need for admit. Signatures: Dispatcher [employer] EDMS Dimas Hilario MD MD cha Hall, Patricia, RN RN ph Baxter, Heather, RN RN hb Jeffries, Jennifer jj6 Martinez, Zaina zm Ayala, Heidy, RN RN 1 Corrections: (The following items were deleted from the chart) 15: 14:40 General: Appears comfortable, Behavior is calm, cooperative, Reports fatigue for ha1 0-12 hours, SOB. ha1 15: 14:40 Pain: Denies pain. ha1 ha1 15: 14:40 Neuro: Level of Consciousness is awake, alert, obeys commands, Oriented to ha1 person, place, time, situation, ha1 : 14:40 Cardiovascular: Heart tones S1 S2 present Capillary refill < 3 seconds Pulses are ha1 all present. Rhythm is regular ha1 15: 14:40 Respiratory: Reports shortness of breath on exertion Airway is patent Respiratory ha1 effort is even, Breath sounds with crackles bilaterally. Onset: The symptoms/episode began/occurred gradually, ha1 : 14:40 GI: No signs and/or symptoms were reported involving the gastrointestinal system. ha1 ha1 15: 14:40 : No signs and/or symptoms were reported regarding the genitourinary system. ha1ha1 15: 14:40 EENT: No signs and/or symptoms were reported regarding the EENT system. ha1 ha1 15: 14:40 Derm: Skin is intact, Skin is dry, Skin is pink, warm \T\ dry. ha1 ha1 15: 14:40 Musculoskeletal: Capillary refill < 3 seconds, ha1 ha1 16:27 16:15 Reassessment: Patient is alert, oriented x 3, equal unlabored respirations, skin ha1 warm/dry/pink. ha1
--- NOTE | 2021-11-19 15:08 | EDPHYS ---
Physician Documentation [facility] Name: Shaila Washington Age: 71 yrs Sex: Female : 1950 Arrival Date: 11/19/2021 Time: 12:36 Bed 3 Private MD: ED Physician Dimas Hilario HPI: 11/19 14:42 This 71 yrs old Female presents to ER via Ambulatory with complaints of orion Shortness Of Breath. 14:42 The patient has shortness of breath at rest, with light activity. Onset: The orion symptoms/episode began/occurred 3 day(s) ago. Duration: The symptoms are continuous, and are steadily getting worse. The patient's shortness of breath is aggravated by exertion, light activity, supine position, is alleviated by elevating head, sitting up, application of supplemental oxygen. Associated signs and symptoms: Pertinent positives: non-productive cough. The patient has not experienced similar symptoms in the past. Historical: - Allergies: 12:43 No Known Allergies; hb - PMHx: 12:43 Diabetes - IDDM; Hyperlipidemia; Hypertension; hb - Immunization history:: Adult Immunizations unknown. - Social history:: Smoking status: unknown. ROS: 14:58 Constitutional: Negative for fever, chills, and weight loss, Eyes: Negative for injury, orion pain, redness, and discharge, ENT: Negative for injury, pain, and discharge, Neck: Negative for injury, pain, and swelling, Cardiovascular: Negative for chest pain, palpitations, and edema, Abdomen/GI: Negative for abdominal pain, nausea, vomiting, diarrhea, and constipation, Back: Negative for injury and pain, : Negative for injury, bleeding, discharge, and swelling, Skin: Negative for injury, rash, and discoloration, Neuro: Negative for headache, weakness, numbness, tingling, and seizure, Psych: Negative for depression, anxiety, suicide ideation, homicidal ideation, and hallucinations, Allergy/Immunology: Negative for hives, rash, and allergies, Endocrine: Negative for neck swelling, polydipsia, polyuria, polyphagia, and marked weight changes, Hematologic/Lymphatic: Negative for swollen nodes, abnormal bleeding, and unusual bruising. 14:58 Respiratory: Positive for cough, dyspnea on exertion, orthopnea, shortness of breath. 14:58 MS/extremity: Positive for swelling, of the right leg and left leg. Exam: 14:58 Constitutional: This is a well developed, well nourished patient who is awake, alert, orion and in no acute distress. Head/Face: Normocephalic, atraumatic. Eyes: Pupils equal round and reactive to light, extra-ocular motions intact. Lids and lashes normal. Conjunctiva and sclera are non-icteric and not injected. Cornea within normal limits. Periorbital areas with no swelling, redness, or edema. ENT: Nares patent. No nasal discharge, no septal abnormalities noted. Tympanic membranes are normal and external auditory canals are clear. Oropharynx with no redness, swelling, or masses, exudates, or evidence of obstruction, uvula midline. Mucous membranes moist. Neck: Trachea midline, no thyromegaly or masses palpated, and no cervical lymphadenopathy. Supple, full range of motion without nuchal rigidity, or vertebral point tenderness. No Meningismus. Cardiovascular: Regular rate and rhythm with a normal S1 and S2. No gallops, murmurs, or rubs. Normal PMI, no JVD. No pulse deficits. Respiratory: Lungs have equal breath sounds bilaterally, clear to auscultation and percussion. No rales, rhonchi or wheezes noted. No increased work of breathing, no retractions or nasal flaring. Abdomen/GI: Soft, non-tender, with normal bowel sounds. No distension or tympany. No guarding or rebound. No evidence of tenderness throughout. Back: No spinal tenderness. No costovertebral tenderness. Full range of motion. Skin: Warm, dry with normal turgor. Normal color with no rashes, no lesions, and no evidence of cellulitis. MS/ Extremity: Pulses equal, no cyanosis. Neurovascular intact. Full, normal range of motion. Neuro: Awake and alert, GCS 15, oriented to person, place, time, and situation. Cranial nerves II-XII grossly intact. Motor strength 5/5 in all extremities. Sensory grossly intact. Cerebellar exam normal. Normal gait. Psych: Awake, alert, with orientation to person, place and time. Behavior, mood, and affect are within normal limits. 14:58 Chest/axilla: Palpation: is normal, Axilla: are normal, Breasts: are normal, Lymph nodes: lymphadenopathy is not appreciated. 14:58 Cardiovascular: Rate: normal, actual rate is 93 bpm, Rhythm: regular, Pulses: Pulses are 4+ in bilateral radial, brachial, femoral, popliteal, posterior tibial and and dorsalis pedis arteries.. Heart sounds: normal, normal S1and S2, no S3 or S4, no murmur, no rub, no gallop, Edema: 1+ edema to level of left midcalf and right midcalf, JVD: is noted bilaterally, to 2 cm. 14:58 ECG was reviewed by the Attending Physician. Vital Signs: 12:42 BP 172 / 98; Pulse 89; Resp 24; Temp 98.2(TE); Pulse Ox 96% on R/A; Weight 63.5 kg; hb Height 5 ft. 6 in. (167.64 cm); Pain 0/10; 12:45 BP 175 / 103 LA Sitting; Pulse 93; Resp 18; Pulse Ox 96% on R/A; ha1 15:30 BP 127 / 83 LA Supine; Pulse 80 LA; Resp 16 S; Pulse Ox 95% on 2 lpm NC; Pain 0/10; ha1 15:55 BP 127 / 83; Pulse 87; Resp 18; Pulse Ox 96% on R/A; ph 16:38 BP 156 / 86 LA Supine; Pulse 80; Resp 18 S; Pulse Ox 95% on 2 lpm NC; ha1 17:31 BP 170 / 83 LA Supine; Pulse 71; Resp 20 S; Pulse Ox 99% on 2 lpm NC; ha1 12:42 Body Mass Index 22.60 (63.50 kg, 167.64 cm) hb MDM: 12:56 Patient medically screened. orion 15:04 Differential diagnosis: Anemia Anxiety Reaction asthma, CHF exacerbation, pneumonia, orion Pneumothorax pulmonary edema, Pulmonary Embolism Unstable Angina. Antibiotic administration: Not indicated. Differential Diagnosis flu. The patient's Wells Deep Vein Thrombosis Score was calculated as follows: Total Score: 0-2 Pts- Low Risk. The patient's pulmonary embolism risk score was calculated as follows: Total Score: 0-2 points. This patient was found to be at low risk for a pulmonary embolism by using the Well's assessment criteria. Immunization status: Pneumococcal vaccine: Influenza vaccine: Data reviewed: vital signs, nurses notes, lab test result(s), EKG, radiologic studies, CT scan, doppler, plain films. Data interpreted: youth nutritional monitor: rate is 93 beats/min, rhythm is regular, Pulse oximetry: on room air is 96 %. Test interpretation: by ED physician or midlevel provider: ECG, plain radiologic studies. Counseling: I had a detailed discussion with the patient and/or guardian regarding: the historical points, exam findings, and any diagnostic results supporting the discharge/admit diagnosis, the presence of at least one elevated blood pressure reading (>120/80) during this emergency department visit, lab results, radiology results, the need for further work-up and treatment in the hospital. 11/19 12:59 Order name: Basic Metabolic Panel; Complete Time: 14:34 [facility] 11/19 12:59 Order name: CBC with Diff; Complete Time: 14:34 [facility] 11/19 12:59 Order name: D-Dimer; Complete Time: 15:03 [facility] 11/19 12:59 Order name: LFT's; Complete Time: 14:34 [facility] 11/19 12:59 Order name: Magnesium; Complete Time: 14:34 [facility] 11/19 12:59 Order name: NT PRO-BNP; Complete Time: 14:34 [facility] 11/19 12:59 Order name: PT-INR; Complete Time: 15:03 [facility] 11/19 12:59 Order name: Troponin HS; Complete Time: 14:34 [facility] 11/19 12:59 Order name: Blood Culture Adult (2) [facility] 11/19 12:59 Order name: Flu [facility] 11/19 12:59 Order name: SARS-COV-2 RT PCR (Document "Date of Onset" if Symptomatic) [facility] 11/19 16:19 Order name: CBC with Automated Diff [facility] 11/19 16:19 Order name: CBC with Automated Diff [facility] 11/19 16:19 Order name: Comprehensive Metabolic Panel [facility] 11/19 12:59 Order name: XRAY Chest (1 view); Complete Time: 14:34 [facility] 11/19 15:04 Order name: US Extremity Venous W Compression Ej [facility] 11/19 16:19 Order name: Echo with Doppler [facility] 11/19 16:19 Order name: Comprehensive Metabolic Panel [facility] 11/19 16:19 Order name: Magnesium [facility] 11/19 16:19 Order name: Magnesium [facility] 11/19 16:19 Order name: NT PRO-BNP [facility] 11/19 16:19 Order name: NT PRO-BNP [facility] 11/19 16:19 Order name: Phosphorus [facility] 11/19 16:19 Order name: Phosphorus [facility] 11/19 12:59 Order name: EKG; Complete Time: 13:00 [facility] 11/19 12:59 Order name: Cardiac monitoring; Complete Time: 13:59 [facility] 11/19 12:59 Order name: EKG - Nurse/Tech; Complete Time: 14:59 [facility] 11/19 12:59 Order name: IV Saline Lock; Complete Time: 13:44 [facility] 11/19 12:59 Order name: Labs collected and sent; Complete Time: 13:44 [facility] 11/19 12:59 Order name: O2 Per Protocol; Complete Time: 13:59 [facility] 11/19 12:59 Order name: O2 Sat Monitoring; Complete Time: 13:59 [facility] 11/19 16:19 Order name: CONS Physician Consult [facility] 11/19 16:19 Order name: Heart Healthy [facility] EC:58 Rate is 82 beats/min. Rhythm is regular. QRS [place] is Normal. [place] interval is normal. QRS orion interval is normal. QT interval is normal. No Q waves. T waves are Normal. No ST changes noted. Clinical impression: NSR w/ Non-specific ST/T Changes and No evidence of ischemia. Interpreted by me. Reviewed by me. Administered Medications: 13:19 Not Given (Duplicate Order): NS 0.9% 1000 ml IV at 125 ml/hr continuous orion 13:19 Not Given (Duplicate Order): NS 0.9% 500 ml IV at bolus once orion 13:19 Not Given (Duplicate Order): Zithromax (azithromycin) 500 mg PO once orion 13:19 Not Given (Duplicate Order): Pepcid (famotidine) 40 mg PO once orion 13:56 Drug: Lasix (furosemide) 40 mg Route: IVP; Site: right antecubital; ph 17:43 Follow up: Response: No adverse reaction; Blood pressure is lowered; Wheezing diminishedha1 17:46 Follow up: Response: No adverse reaction; Blood pressure is lowered; Wheezing diminishedha1 15:44 Not Given (Hemodynamic Parameters): NS 0.9% 1000 ml IV at 125 ml/hr continuous ph 15:48 Drug: Pepcid (famotidine) 20 mg Route: IVP; Site: right antecubital; ha1 17:43 Follow up: Response: No adverse reaction ha1 15:50 Drug: Lovenox (enoxaparin) 1 mg/kg Route: Sub-Q; Site: right lower abdomen; ha1 17:42 Follow up: Response: No adverse reaction ha1 15:50 Drug: Lopressor (metoprolol TARTRATE)) 25 mg Route: PO; ha1 17:40 Follow up: Response: No adverse reaction; Blood pressure is lowered ha1 16:32 Not Given (Other Intervention Used): Tylenol 650 mg PO once ph 17:25 Drug: Nitro-Bid (nitroglycerin) Ointment 2 % 1 inches Route: Transdermal; Site: ha1 anterior chest wall; 19:41 Follow up: Response: No adverse reaction ph 18:15 Drug: Potassium Effervescent Tablet 50 mEq Route: PO; ha1 19:41 Follow up: Response: No adverse reaction ph Disposition Summary: 11/19/21 15:07 Hospitalization Ordered Hospitalization Status: Inpatient Admission orion Provider: Shreya Perez cha Location: Telemetry/MedSurg (Inpatient) orion Condition: Fair orion Problem: new orion Symptoms: have improved orion Bed/Room Type: Standard orion Room Assignment: 207(11/19/21 17:12) dw Diagnosis - Cardiomegaly orion - Unspecified diastolic (congestive) heart failure orion - Unspecified systolic (congestive) heart failure orion - Essential (primary) hypertension orion - Type 1 diabetes mellitus with hyperglycemia orion - Hypokalemia orion - Abnormal levels of other serum enzymes - elevated tropnin 81.7 orion Forms: - Medication Reconciliation Form orion - SBAR form orion Signatures: Dispatcher [employer] Claribel Taylor RN RN dw Anderson, Corey, MD MD cha Hall, Patricia, RN RN ph Baxter, Heather, RN RN hb Ayala, Heidy, RN RN ha1 Corrections: (The following items were deleted from the chart) 17:12 15:07 orion dw
[2021-11-19] MEDS ORDERED: METOPROLOL TAR 25 MG TAB ONE (15:17)
[2021-11-19] MEDS ORDERED: FAMOTIDINE 20 MG/2 ML VIAL IV ONE (15:18)
[2021-11-19] MEDS ORDERED: ENOXAPARIN 60 MG/0.6 ML SQ ONE (15:20)
--- NOTE | 2021-11-19 15:34 | RAD REPORT ---
EXAM DESCRIPTION: US - Extrem Venous W Compress Ej - 11/19/2021 3:25 pm CLINICAL HISTORY: Pain Bilateral leg edema and swelling. COMPARISON: No comparisonsNo comparisons TECHNIQUE: Real-time sonographic interrogation of the left and right lower extremity deep venous sys tems was performed. FINDINGS: Normal compressibility, flow augmentation, phasic flow and spontaneous flow is identified in both the left and right lower extremity deep venous systems. IMPRESSION: No sonographic evidence of left or right lower extremity deep venous thrombosis.
[2021-11-19] MEDS ORDERED: ONDANSETRON 4 MG/2 ML VIAL IV PRN (16:14)
[2021-11-19] MEDS: FUROSEMIDE 40 MG/4 ML VIAL IV SCH (17:00)
[2021-11-19] MEDS ORDERED: NITROGLYCERIN 1 GM PKT TD ONE (17:25)
[2021-11-19] MEDS ORDERED: POTASSIUM 25 MEQ EFFERV TAB ONE (18:22)
[2021-11-19 19:54] VITALS: BMI 22.6
[2021-11-19] MEDS: POTASSIUM 25 MEQ EFFERV TAB PO SCH (21:00)
[2021-11-20 04:23] LABS: Specific Gravity 1.025 (1.005-1.030); Urine Bilirubin Negative (Negative); Urine Blood 1+ (Negative); Urine Clarity Clear (Clear); Urine Color Yellow (Yellow); Urine Glucose Negative (Negative); Urine Protein 3+ (Negative); Urine Urobilinogen 0.2 mg/dL (0.2-1.0)
[2021-11-20 04:31] LABS: Hematocrit 29.6 % (36.0-45.0); Lymphocytes % 37.3 % (15.3-44.8); MCV 84.1 fL (80-100); MPV 8.5 fL (7.6-11.3); RBC Red Blood Cell Count 3.52 M/uL (3.86-4.86)
[2021-11-20 04:42] LABS: Albumin 2.3 g/dL (3.4-5.0); Bilirubin Total 0.2 mg/dL (0.2-1.0); Magnesium 1.9 mg/dL (1.8-2.4); Phosphorus 3.7 mg/dL (2.5-4.9); Potassium 3.3 mmol/L (3.5-5.1)
[2021-11-20 04:52] LABS: Urine Bacteria <20 /HPF (<20); Urine RBC <5 /HPF (None Seen)
[2021-11-20] MEDS: FUROSEMIDE 40 MG/4 ML VIAL IV SCH ×2 (08:39→17:24)
[2021-11-20] MEDS: POTASSIUM 25 MEQ EFFERV TAB PO SCH ×2 (08:40→21:00)
[2021-11-20] MEDS: ENOXAPARIN 40 MG/0.4 ML SQ SCH (08:40)
[2021-11-20] MEDS ORDERED: METOPROLOL TAR 25 MG TAB PO SCH (09:00)
[2021-11-20] MEDS ORDERED: carvediloL 6.25 MG TAB PO ONE (09:04)
--- NOTE | 2021-11-20 09:04 | P.HP ---
Certification for Inpatient Patient admitted to: Inpatient With expected LOS: >2 Midnights Patient will require the following post-hospital care: None Practitioner: I am a practitioner with admitting privileges, knowledge of patient current condition, hospital course, and medical plan of care. Services: Services provided to patient in accordance with Admission requirements found in Title 42 Section 412.3 of the Code of Federal Regulations Patient History Date of Service: 11/19/21 Reason for admission: shortness of breath History of Present Illness: patient is a 71-year-old female who came to the hospital with difficulty breathing. Patient states she also noted she was swallowing a little bit in her lower extremities. She has a history of a CVA a couple of years ago here at the hospital. At that time, her echocardiogram revealed ejection fraction was normal but she had diastolic heart failure. Her workup in the emergency room showed an x-ray with pulmonary edema with elevated BNP. She also looked at some chronic lung changes on her chest x-ray. She denies any history of tobacco use. Will admit her to the hospital and continue with diuresing. We will get Cardiology consultation as well. Allergies No Known Allergies Allergy (Verified 03/13/12 22:09) Home Medications: Ropinirole HCl [Requip] 2 mg PO BEDTIME 09/04/19 Amlodipine [Norvasc*] 1 tab PO DAILY 09/05/19 Aspirin [Adult Low Dose Aspirin EC] 81 mg PO DAILY #30 tablet.dr 09/05/19 Atorvastatin Calcium [Lipitor] 40 mg PO 30 MIN BEFORE HS #30 tablet 09/05/19 Dapagliflozin Propanediol [Farxiga] 1 tab PO DAILY 09/05/19 Metformin ER [Glucophage ER*] 500 mg PO BID 30 Days #60 tab.sa 09/05/19 Metformin HCl [Glucophage] 1 tab PO BID 09/05/19 PARoxetine HCL [Paxil*] 1 tab PO DAILY 09/05/19 - Past Medical/Surgical History Diabetic: Yes -: CVA -: diabetes -: depression Past Surgical History: Patient denies surgical history - Family History Father Medical History: Heart disease Mother Medical History: Diabetes - Social History Smoking Status: Never smoker Alcohol use: No CD- Drugs: No Review of Systems 10-point ROS is otherwise unremarkable Physical Examination - Vital Signs Temperature: 98.3 F Blood Pressure: 173/78 Pulse: 69 Respirations: 14 Pulse Ox (%): 94 - Physical Exam General: Alert, In no apparent distress, Oriented x3 HEENT: Atraumatic, PERRLA, Mucous membr. moist/pink, EOMI, Sclerae nonicteric Neck: Supple, 2+ carotid pulse no bruit, No LAD, Without JVD or thyroid abnormality Respiratory: Diminished, Crackles/rales Cardiovascular: Regular rate/rhythm, Normal S1 S2 Gastrointestinal: Normal bowel sounds, No tenderness Musculoskeletal: No tenderness Integumentary: No rashes Neurological: Normal gait, Normal speech, Normal strength at 5/5 x4 extr, Normal tone, Normal affect Lymphatics: No axilla or inguinal lymphadenopathy - Studies Laboratory Data (last 24 hrs) 11/19/21 13:39: PT 12.5, INR 1.13 11/19/21 13:39: WBC 11.4 H, Hgb 11.7 L, Hct 35.4 L, Plt Count 452 H 11/19/21 13:39: Sodium 137, Potassium 3.2 L, BUN 14, Creatinine 1.28, Glucose 141 H, Magnesium 2.0 D, Total Bilirubin 0.2, AST 16, ALT 21, Alkaline Phosphatase 74 Microbiology Data (last 24 hrs): 11/19/21 13:56 Nasopharnyx Influenza Type A Antigen Screen - Final 11/19/21 13:56 Nasopharnyx Influenza Type B Antigen Screen - Final Assessment & Plan - Problems (Diagnosis) (1) Acute CHF Current Visit: Yes Status: Acute (2) History of CVA (cerebrovascular accident) Current Visit: Yes Status: Acute (3) Diabetes mellitus type 2 in nonobese Current Visit: No Status: Acute (4) Hepatitis C infection Current Visit: No Status: Acute (5) Hyperlipidemia Current Visit: No Status: Acute - Plan 1. Echocardiogram 2. strict blood pressure control 3. monitor blood sugars 4. Cardiology consultation 5. Aggressive diuresis 6. Strict I's and O's 7. Repeat CXR 8. Daily weights 9. Education regarding diet and treatment of congestive heart failure Discharge Plan: Home Plan to discharge in: Greater than 2 days - Advance Directives Does patient have a Living Will: No Does patient have a Durable POA for Healthcare: No - Code Status/Comfort Care Code Status Assessed: Yes Code Status: Full Code Critical Care: No Time Spent Managing PTS Care (In Minutes): 45
--- NOTE | 2021-11-20 09:41 | P.PN ---
Subjective Date of Service: 11/20/21 Chief Complaint: shortness of breath Subjective: Improving She reports that her breathing has improved significantly. Overnight, her SPO2 dropped down to 83 % while sleeping, but she states that this was asymptomatic. Review of Systems General: Unremarkable Eyes: Unremarkable ENT: Unremarkable Respiratory: Shortness of Breath Cardiovascular: Unremarkable Gastrointestinal: Unremarkable Genitourinary: Unremarkable Musculoskeletal: Pedal edema Integumentary: Unremarkable Neurological: Unremarkable Lymphatics: Unremarkable Physical Examination - Vital Signs Temperature: 98.3 F Blood Pressure: 173/78 Pulse: 69 Respirations: 14 Pulse Ox (%): 94 - Physical Exam General: Alert, In no apparent distress, Oriented x3 HEENT: Atraumatic, Mucous membr. moist/pink, EOMI, Sclerae nonicteric Neck: Supple, JVD not distended Respiratory: Normal air movement, Crackles/rales (faint, bibasilar) Cardiovascular: Regular rate/rhythm, Normal S1 S2, No gallops, No rubs, No murmurs, Edema (trace-1+ bilateral lower extremity) Gastrointestinal: Normal bowel sounds, Soft and benign, No tenderness, No rebound, No guarding Musculoskeletal: No clubbing Integumentary: No rashes Neurological: Normal speech, Normal affect - Studies Laboratory Data (last 24 hrs) 11/19/21 13:39: PT 12.5, INR 1.13 11/19/21 13:39: WBC 11.4 H, Hgb 11.7 L, Hct 35.4 L, Plt Count 452 H 11/19/21 13:39: Sodium 137, Potassium 3.2 L, BUN 14, Creatinine 1.28, Glucose 141 H, Magnesium 2.0 D, Total Bilirubin 0.2, AST 16, ALT 21, Alkaline Phosphatase 74 Microbiology Data (last 24 hrs): 11/19/21 13:56 Nasopharnyx Influenza Type A Antigen Screen - Final 11/19/21 13:56 Nasopharnyx Influenza Type B Antigen Screen - Final Medications List Reviewed: Yes Assessment And Plan - Plan # Acute Hypoxic Respiratory Failure likely secondary to Acute Decompensated Diastolic Congestive Heart Failure with Preserved Ejection Fraction - SpO2 down to 83-87 % overnight - DDx includes CHF +/- PE +/- possible GABRIELLA? - D-Dimer = 1383, ordered V/Q scan given decreased GFR - Consult Cardiology and spoke with Dr. Payan - recommendations appreciated - Transthoracic echocardiogram pending - Last TTE (09/04/2019) = LVEF 55-60 % - NT-Pro BNP = 10,760 -> 12,442 - Diuresis with IV furosemide - Continue carvedilol, furosemide, losartan - Daily weights - Strict I/O # Elevated Troponin - Troponin trend = 81.7 -> 85.1 (possibly partially secondary to decreased creatinine clearance) - EKG, telemetry - Consult Cardiology and spoke with Dr. Payan - recommendations appreciated - Suspects elevated troponin to be secondary to demand ischemia - TTE pending # Hypertenive Urgency - Blood pressure up to 184/79 this morning - Continue carvedilol, furosemide, losartan - PRN hydralazine for SBP > 160 mmHg # Type II Diabetes Mellitus - Ordered Hgb A1c - Correction scale insulin # History of Cerebrovascular Accident # Chronic Hepatitis C Infection # Hyperlipidemia Dany Clinton MD Discharge Plan: Home Plan to discharge in: 48 Hours
[2021-11-20] MEDS ORDERED: lisinopriL 10 MG TAB PO SCH (09:46)
[2021-11-20] MEDS ORDERED: HYDRALAZINE HCL 20 MG/ML VIAL IV PRN (09:52)
--- NOTE | 2021-11-20 11:29 | RAD REPORT ---
EXAM DESCRIPTION: NM - Vent Perfusion VQ Scan - 11/20/2021 10:33 am CLINICAL HISTORY: rule out PE COMPARISON: Portable chest 11/19/2021 TECHNIQUE: The patient was administered approximately 20 mCi Xenon 133 gas with posterior projection inspiration, equilibrium, and washout views obtained. The patient was then administered approximatel y 7 mCi Tc-99m MAA labeled RBCs followed by standard 8 view protocol. FINDINGS: There is good distribution of the Xenon with no ventilation defects identified. Moderate d iffuse air trapping is seen. There is some minimal heterogeneity of the perfusion pattern. No lobar or segmental defects are prese nt. The no subsegmental abnormality seen that is considered suspicious for pulmonary embolic disease. IMPRESSION: Normal to low probability V/Q scan for pulmonary embolism. Moderate diffuse air trapping with no ventilation focal defect.
--- NOTE | 2021-11-20 12:42 | EKG ---
Test Date: 2021-11-19 Test Time: 14:34:46 Meteorologist Liaison: LUIZ MEASUREMENT RESULTS: Intervals: Rate: 82 [place]: 150 QRSD: 84 QT: 386 QTc: 450 [place]: P: 47 [place]: 150 QRS: 49 T: 61 INTERPRETIVE STATEMENTS: Sinus rhythm with premature atrial complexes Nonspecific T wave abnormality Abnormal ECG Compared to ECG 09/03/2019 23:07:17 No significant changes Electronically Signed On 11-20-21 12:40:00 CDT by Eric Quinteros
[2021-11-20] MEDS: LOSARTAN POTASSIUM 50 MG TABLET PO SCH (21:04)
[2021-11-20] MEDS: carvediloL 6.25 MG TAB PO SCH (21:04)
[2021-11-21 05:48] LABS: Albumin 2.5 g/dL (3.4-5.0); Bilirubin Total 0.3 mg/dL (0.2-1.0); Potassium 3.8 mmol/L (3.5-5.1); Protein, Total 6.3 g/dL (6.4-8.2)
[2021-11-21 05:56] LABS: Hematocrit 31.6 % (36.0-45.0); MCV 84.4 fL (80-100); MPV 8.6 fL (7.6-11.3); RBC Red Blood Cell Count 3.74 M/uL (3.86-4.86)
--- NOTE | 2021-11-21 07:08 | ECHO ---
HEIGHT: 5 ft 6 in WEIGHT: 140 lb 0 oz DATE OF STUDY: 11/20/[address]: Shreya Perez MD 2-DIMENSIONAL: YES M.MODE: YES DOPPLER: YES COLOR FLOW: YES TDS: PORTABLE: YES DEFINITY: BUBBLE STUDY: DIAGNOSIS: CONGESTIVE HEART FAILURE CARDIAC HISTORY: CATHERIZATION: NO SURGERY: NO PROSTHETIC VALVE: NO PACEMAKER: NO MEASUREMENTS (cm) DIASTOLIC (NORMALS) SYSTOLIC (NORMALS) IVSd 1.2 (0.6-1.2) LA Diam 2.7 (1.9-4.0) LVEF 40% LVIDd 4.6 (3.5-5.7) LVIDs 2.9 (2.0-3.5) %FS 14% LVPWd 1.2 (0.6-1.2) Ao Diam 2.9 (2.0-3.7) 2 DIMENSIONAL ASSESSMENT: RIGHT ATRIUM: NORMAL LEFT ATRIUM: NORMAL RIGHT VENTRICLE: NORMAL LEFT VENTRICLE: MILD LEFT VENTRICULAR HYPERTROPHY TRICUSPID VALVE: NORMAL MITRAL VALVE: MILD MITRAL REGURGITATION PULMONIC VALVE: NORMAL AORTIC VALVE: THICKENED VALVE, NO AORTIC STENOSIS PERICARDIAL EFFUSION: NONE AORTIC ROOT: NORMAL LEFT VENTRICULAR WALL MOTION: MODERATE GLOBAL HYPOKINESIS. DOPPLER/COLOR FLOW: SEE BELOW COMMENTS: MODERATELY DEPRESSED LEFT VENTRICULAR EJECTION FRACTION 35-40%. MODERATE GLOBAL HYPOKINESIS. MILD MITRAL REGURGITATION. MODERATE DIASTOLIC DYSFUNCTION. TECHNOLOGIST: PINEDA SAMS
[2021-11-21] MEDS: carvediloL 6.25 MG TAB PO SCH ×2 (08:57→20:49)
[2021-11-21] MEDS: LOSARTAN POTASSIUM 50 MG TABLET PO SCH ×2 (08:58→20:49)
[2021-11-21] MEDS: ENOXAPARIN 40 MG/0.4 ML SQ SCH (08:58)
[2021-11-21] MEDS: POTASSIUM 25 MEQ EFFERV TAB PO SCH ×2 (08:58→20:49)
[2021-11-21] MEDS: FUROSEMIDE 40 MG/4 ML VIAL IV SCH ×2 (08:58→16:53)
[2021-11-21] MEDS ORDERED: LOSARTAN POTASSIUM 50 MG TABLET PO ONE (09:05)
--- NOTE | 2021-11-21 10:26 | P.PN ---
Subjective Date of Service: 11/21/21 Chief Complaint: shortness of breath Overnight, her SpO2 dropped down to 92 % and she reports that this was slightly symptomatic. Overall, she feels that her breathing is gradually improving, but is worse with ambulation. Review of Systems General: Unremarkable Eyes: Unremarkable ENT: Unremarkable Respiratory: Shortness of Breath, SOB with Excertion Cardiovascular: Unremarkable Gastrointestinal: Unremarkable Genitourinary: Unremarkable Musculoskeletal: Unremarkable Integumentary: Unremarkable Neurological: Unremarkable Physical Examination - Vital Signs Temperature: 97.3 F Blood Pressure: 170/81 Pulse: 76 Respirations: 24 Pulse Ox (%): 94 - Studies Medications List Reviewed: Yes Assessment And Plan - Plan PHYSICAL EXAM: General: Alert, In no apparent distress, Oriented x3 HEENT: Atraumatic, Mucous membr. moist/pink, EOMI, Sclerae nonicteric Neck: Supple, JVD not distended Respiratory: SpO2 92 % on 2 L NC. Normal air movement, Crackles/rales (faint, bibasilar) Cardiovascular: Regular rate/rhythm, Normal S1 S2, No gallops, No rubs, No murmurs, Edema (trace-1+ bilateral lower extremity) Gastrointestinal: Normal bowel sounds, Soft and benign, No tenderness, No rebound, No guarding Musculoskeletal: No clubbing Integumentary: No rashes Neurological: Normal speech, Normal affect ASSESSMENT/PLAN: # Acute Hypoxic Respiratory Failure likely secondary to Acute Decompensated Systolic Congestive Heart Failure with Reduced Ejection Fraction (LVEF 35-40 %) - SpO2 down to 92 % overnight - DDx includes CHF +/- possible GABRIELLA? - D-Dimer = 1383 - V/Q scan = "Normal to low probability V/Q scan for pulmonary embolism. Moderate diffuse air trapping with no ventilation focal defect." - Spoke with RT, plan for ambulatory oxygen testing - Consult Cardiology and spoke with Dr. Payan - recommendations appreciated - IV diuresis for one more day, plan to discharge tomorrow - Discontinue amlodipine - Continue carvedilol, furosemide, losartan - Transthoracic echocardiogram = LVEF 35-40 % - Last TTE (09/04/2019) = LVEF 55-60 % - NT-Pro BNP = 10,760 -> 12,442 - Daily weights - Strict I/O # Elevated Troponin - Troponin trend = 81.7 -> 85.1 (possibly partially secondary to decreased creatinine clearance) - EKG, telemetry - Consult Cardiology and spoke with Dr. Payan - recommendations appreciated - Suspects elevated troponin to be secondary to demand ischemia - TTE = LVEF 35-40 % # Hypertenive Urgency - Blood pressure up to 170/81 this morning - Continue carvedilol, furosemide, losartan - PRN hydralazine for SBP > 160 mmHg # Type II Diabetes Mellitus - Ordered Hgb A1c = 6.0 % - Correction scale insulin # History of Cerebrovascular Accident # Chronic Hepatitis C Infection # Hyperlipidemia Dany Clinton MD Discharge Plan: Home Plan to discharge in: 24 Hours
--- NOTE | 2021-11-21 14:13 | PN ---
Date of Progress Note: 11/21/2021 Ms. Washington is 71. Has diabetes, hypertension, dyslipidemia. She was admitted with new onset congest dunia heart failure with elevated troponin, BNP, and D-dimer. CT angiogram was negative for pulmonary embolus. Venous Doppler was negative. Chest x-ray still showed CHF. Echocardiogram showed an eject ion fraction of 35% to 40% with [id number] mitral regurgitation and some diastolic dysfunction. Mrs. Washington's home regimen of medication needs to be continued except for the Norvasc. I think we should stop that. She should be going home on beta-shahriar, preferably carvedilol and Lasix as well as an TOMASA inhibitor. She will need to have an outpatient Lexiscan down the road and maybe a heart ca theterization considering all her risk factors. Case was discussed with Dr. Clinton. SCOTT/NORMAN Voice ID: [id number] Report ID: [id number]
--- NOTE | 2021-11-21 14:13 | CON ---
Date of Consultation: 11/20/2021 Reason For Consultation: New onset congestive heart failure. History Of Present Illness: Ms. Washington is a 71-year-old with history of hypertension, diabetes, dysl ipidemia, restless legs syndrome, anxiety, was admitted with new onset congestive heart failure, PND, orthopnea, pedal edema, some chest pressure. Denied any palpitation, syncope, fever, or chills. e was found to have D-dimer of 1363. Her troponin was 85. Her BNP was 12,000. She had already had a venous Doppler that was negative. Chest x-ray shows congestive heart failure. Her EKG was nonspec ific. Past Medical History: As stated above. Allergies: NONE. Review of Systems: Negative. Social History: Negative. Family History: Noncontributory. Medications: At home include aspirin, Lipitor, Norvasc, Paxil, metformin, Forxiga, and Requip. Physical Examination: Vital Signs: Stable, afebrile, sinus rhythm. HEENT: Negative. Neck: Supple with no bruit, lymphadenopathy, JVD, or thyromegaly. Chest: Reveals rales both bases. Cardiac: Revealed a regular rhythm and rate with an S3 gallop and a mitral regurgitation murmur. Abdomen: Benign. Extremities: Revealed 1+ edema to the knee. Skin: Dry and intact. Neurologic: She was nonfocal. Pulses were present distally bilaterally. Impression And Plan: 1.New onset congestive heart failure, most likely systolic. Echocardiogram is pending. 2.Elevated troponin, BNP, and D-dimer secondary to demand ischemia from congestive heart failure. 3.Hypertension, poorly controlled. 4.Renal insufficiency. 5.Diabetes. 6.Dyslipidemia. 7.Restless legs syndrome. 8.Anxiety. Echocardiogram is pending. We will make decisions regarding her further therapy dependi ng on the echocardiogram, but for now, I think we should take her off the Norvasc, put her on beta-bl ocker, marurese her, consider adding an TOMASA inhibitor. She is on Lovenox. I will continue to follow. NB/MODL Voice ID: [id number] Report ID: [id number]
[2021-11-21] MEDS ORDERED: ATORVASTATIN 80 MG TAB PO SCH (21:00)
[2021-11-22 00:36] VITALS: O2SAT 93
[2021-11-22 06:12] LABS: Hematocrit 29.3 % (36.0-45.0); MCV 84.7 fL (80-100); MPV 8.7 fL (7.6-11.3); RBC Red Blood Cell Count 3.46 M/uL (3.86-4.86)
[2021-11-22 06:22] LABS: Albumin 2.3 g/dL (3.4-5.0); Bilirubin Total 0.3 mg/dL (0.2-1.0); Phosphorus 3.4 mg/dL (2.5-4.9); Potassium 3.7 mmol/L (3.5-5.1); Protein, Total 5.8 g/dL (6.4-8.2)
--- NOTE | 2021-11-22 07:13 | P.DS ---
Admission Date: 11/19/21 Discharge Date: 11/22/21 Disposition: ROUTINE DISCHARGE Discharge Condition: GOOD Reason for Admission: shortness of breath Consultations: 1. Cardiology Hospital Course: DIAGNOSES: # Acute Hypoxic Respiratory Failure likely secondary to Acute Decompensated Combined Systolic/Diastolic Congestive Heart Failure with Reduced Ejection Fraction (LVEF 35-40 %) # Elevated Troponin - suspect Demand Ischemia (Type II NSTEMI) # Hypertenive Urgency # Type II Diabetes Mellitus # History of Cerebrovascular Accident # Chronic Hepatitis C Infection # Hyperlipidemia HOSPITAL COURSE: Ms. Shaila Washington is a pleasant 71 year old female with a past medical history significant for hypertension, tpye II diabetes mellitus, hyperlipidemia, chronic hepatitis C infection, and a prior cerebrovascular accident who was admitted to the [facility] on 11/19/2021 for shortness of breath. Upon further evaluation, she was found to have acute hypoxic respiratory failure secondary to acute decompensated comibned systolic/diastolic congestive heart failure. Upon admission, D-dimer returned elevated at 1383. A V/Q scan revealed, "normal to low probability V/Q scan for pulmonary embolism. Moderate diffuse air trapping with no ventilation focal defect." In regards to her cardiac evaluation, she was found to have acute-onset congestive heart failure. Her presenting NT-Pro BNP was 10,760. She had an elevated troponin trend of 81.7 and 85.1, respectively. Her transthoracic echocardiogram revealed, "moderately depressed left ventricular ejection fraction 35-40%. Moderate global hypokinesis. mild mitral regurgitation. Moderate diastolic dysfunction." Cardiology was consulted and she was evaluated by Dr. Payan. He felt that her elevated troponin was secondary to demand ischemia from CHF. She was treated with IV furosemide, with significant improvement of her symptoms. Cardiology has cleared her for discharge with outpatient follow-up for a stress-test +/- cardiac catheterization. Of note, her SpO2 was noted to asymptomatically dip at night while sleeping. I explained that this may be a sign of sleep apnea and advised that she follow-up with her PCP to arrange an outpatient sleep study. She and her verbalized understanding. On 11/22/2021, she was seen on morning rounds and deemed medically stable for discharge. She was discharged with instructions to schedule follow-up appointments with her PCP (Dr. Maurer) in 3-5 days and Cardiology (Dr. Payan) in 5-7 days. She was provided prescriptions for carvedilol, furosemide, and losartan per Cardiology recommendations. She was counseled to discontinue hydrochlorothiazide and amlodipine. She and her were given the opportun ity to ask questions and reported no further questions. Furthermore, all questions were answered to the best of my ability. Today, I personally spent 35 minutes on her case, of which greater than 50% of the time was spent in patient education, counseling, and coordination of care as described above. PHYSICAL EXAM: General: Alert, In no apparent distress, Oriented x3 HEENT: Atraumatic, Mucous membr. moist/pink, EOMI, Sclerae nonicteric Neck: Supple, JVD not distended Respiratory: SpO2 93 % on room air. Normal air movement, Crackles/rales (faint, bibasilar) Cardiovascular: Regular rate/rhythm, Normal S1 S2, No gallops, No rubs, No murmurs, Edema (trace bilateral lower extremity) Gastrointestinal: Normal bowel sounds, Soft and benign, No tenderness, No rebound, No guarding Musculoskeletal: No clubbing Integumentary: No rashes Neurological: Normal speech, Normal affect Vital Signs/Physical Exam: Temp Pulse Resp BP Pulse Ox 96.5 F L 64 14 159/80 H 90 L 11/22/21 04:00 11/22/21 04:00 11/22/21 04:00 11/22/21 04:00 11/22/21 04:00 Laboratory Data at Discharge: WBC 10.6 K/uL (4.3-10.9) 11/22/21 05:52 Hgb 10.0 g/dL (12.0-15.0) L 11/22/21 05:52 Hct 29.3 % (36.0-45.0) L 11/22/21 05:52 Plt Count 361 K/uL (152-406) 11/22/21 05:52 PT 12.5 SECONDS (9.5-12.5) 11/19/21 13:39 INR 1.13 11/19/21 13:39 Sodium 140 mmol/L (136-145) 11/22/21 05:52 Potassium 3.7 mmol/L (3.5-5.1) 11/22/21 05:52 BUN 20 mg/dL (7-18) H 11/22/21 05:52 Creatinine 1.40 mg/dL (0.55-1.3) H 11/22/21 05:52 Glucose 155 mg/dL (74-106) H 11/22/21 05:52 Phosphorus 3.4 mg/dL (2.5-4.9) 11/22/21 05:52 Magnesium 2.0 mg/dL (1.8-2.4) 11/22/21 05:52 Total Bilirubin 0.3 mg/dL (0.2-1.0) 11/22/21 05:52 AST 16 U/L (15-37) 11/22/21 05:52 ALT 16 U/L (12-78) 11/22/21 05:52 Alkaline Phosphatase 59 U/L (45-117) 11/22/21 05:52 Home Medications: Ropinirole HCl [Requip] 2 mg PO BEDTIME 09/04/19 Metformin HCl [Glucophage] 1 tab PO BID 09/05/19 Atorvastatin Calcium [Lipitor] 1 tab PO DAILY 11/20/21 glipiZIDE [Glipizide] 1 tab PO BID 11/20/21 Furosemide 40 mg PO DAILY #30 tablet 11/22/21 Losartan Potassium [Cozaar*] 50 mg PO DAILY #30 tablet 11/22/21 carvediloL [Coreg*] 6.25 mg PO BID #60 tab 11/22/21 New Medications: carvediloL [Coreg*] 6.25 mg PO BID #60 tab Losartan Potassium [Cozaar*] 50 mg PO DAILY #30 tablet Furosemide 40 mg PO DAILY #30 tablet Physician Discharge Instructions: 1. Please schedule follow-up with your PCP in 3-5 days 2. Please schedule follow-up with Cardiology (Dr. Payan) in 5-7 days Diet: ADA Activity: Ad lawson Followup: Neri Payan MD [ACTIVE - CAN ADMIT] - 1 Week (contract technical writer- call to schedule an appointment ) Unknown,U [Primary Care Provider] - Time spent managing pt's care (in minutes): 35
[2021-11-22] MEDS: POTASSIUM 25 MEQ EFFERV TAB PO SCH (08:52)
[2021-11-22] MEDS: ENOXAPARIN 40 MG/0.4 ML SQ SCH (08:52)
[2021-11-22] MEDS: LOSARTAN POTASSIUM 50 MG TABLET PO SCH (08:52)
[2021-11-22] MEDS: FUROSEMIDE 40 MG/4 ML VIAL IV SCH (08:54)
[2021-11-22 08:55] VITALS: BP 141/78
[2021-11-22] MEDS: carvediloL 6.25 MG TAB PO SCH (08:55)
[2021-11-22] MEDS ORDERED: ATORVASTATIN 80 MG TAB PO SCH (09:00)
[2021-11-22] MEDS ORDERED: POTASSIUM CL SA 10 MEQ TAB PO ONE (09:00)
[2021-11-22 09:13] VITALS: TEMP 97.8
== END 2021-11-22 10:58 | disposition home or self-care (01) | DRG 280 ==
LOC: ER 12:30 → ERHOLD 16:14 → 2ND 18:12
PROVIDERS: ADMIT Hospitalist; ATTEND Hospitalist
DX: I11.0 Hypertensive heart disease with heart failure (principal); I50.41 Acute combined systolic (congestive) and diastolic (congestive) heart failure; I21.A1 Myocardial infarction type 2; J96.01 Acute respiratory failure with hypoxia; I16.0 Hypertensive urgency; E11.9 Type 2 diabetes mellitus without complications; B18.2 Chronic viral hepatitis C; E78.5 Hyperlipidemia, unspecified; N28.9 Disorder of kidney and ureter, unspecified; G25.81 Restless legs syndrome; Z86.73 Personal history of transient ischemic attack (TIA), and cerebral infarction without residual deficits; Z20.822 Contact with and (suspected) exposure to COVID-19
CPT/HCPCS: 36415; 71045; 78582; 80048; 80053; 80076; 81001; 82947; 83036; 83735; 83880; 84100; 84484; 85025; 85027; 85379; 85610; 87040; 87804; 93005; 93306; 93970; 96372; 96374; 96375; 99285; A9540; A9558; J0360; J1650; J1940; J2405; J7030; U0003